=== PATIENT | male | born 1990 | race Caucasian/White ===

== ENCOUNTER 2022-03-18 09:15 | Inpatient (IN) | payer OTHER, MEDICAID, SELFPAY ==
[2022-03-18] VITALS (85 sets, daily range): BP systolic 124–167; BP diastolic 57–103; PULSE 109–134; RESP 17–58; TEMP 36.9–39.6; O2SAT 84–100; BMI 27.1
--- NOTE | ~2022-03-18 | XR_ITS ---
EXAMINATION: XR abdomen NG/feed tube rechec DATE: 03/18/2022 10:45 INDICATION: Nasogastric tube placement. TECHNIQUE: An upright view of the abdomen was obtained. COMPARISON: Abdomen radiograph at 9:53 AM FINDINGS: The lower abdomen is excluded. There are no dilated loops of bowel. The nasogastric tube ti p is in the stomach. IMPRESSION: 1. Nasogastric tube tip in the stomach. Reviewed, dictated and finalized at location A. GER FASHION
--- NOTE | ~2022-03-18 | CT_ITS ---
EXAMINATION: CTA chest PE protocol DATE: 03/18/2022 15:08 INDICATION: respiratory distress, rule out PE TECHNIQUE: Computed tomography angiography (CTA) of the chest was performed with 100 mL Omnipaque-350 intravenous contrast timed to evaluate the pulmonary arteries. Coronal maximum intensity projection 3D-reconstructions were created by the technologist. The dose-length product (DLP) was 952.25 mGy-cm. Automated exposure control and iterative reconstruction technique were employed. COMPARISON: None. FINDINGS: Lung parenchyma and airways: Scattered groundglass and acinar opacities likely involving all lobes. D ependent atelectasis/consolidation in the right middle lobe and bilateral lower lobes. Mucus plugging in the right middle lobe and right lower lobe Pleura: Unremarkable. Thoracic inlet, axillae and chest wall: Unremarkable. Thoracic aorta: Normal. Mediastinum: Normal. Heart and pericardium: Normal. Coronary artery calcifications: Absent. Upper abdomen: No significant finding. NG tube tip terminates in the stomach. Side port at the [facility]. Bones: No acute osseous finding. Mild anterior wedge deformity of a midthoracic vertebral body, presu mably chronic. Pulmonary arteries: Study quality: Motion limited examination, particularly in the lower lobes where subsegmental or nonocclusive segmental emboli could be missed. No pulmonary emboli detected. IMPRESSION: Motion limited examination, particularly in the lower lobes, within that constraint, no definite CT e vidence of acute pulmonary embolus. Pulmonary opacities concerning for pneumonia involving all lobes, with mucus plugging and atelectasis in the right middle lobe and right lower lobe. Reviewed, dictated and finalized at location K. BUMPER MECHANIC IMPRESSION: Motion limited examination, particularly in the lower lobes, within that constr aint, no definite CT evidence of acute pulmonary embolus. Pulmonary opacities c oncerning for pneumonia involving all lobes, with mucus plugging and atelectasi s in the right middle lobe and right lower lobe.
--- NOTE | ~2022-03-18 | CT_ITS ---
EXAMINATION: CT brain wo con DATE: 03/18/2022 11:29 INDICATION: Seizure. TECHNIQUE: Computed tomography (CT) of the head was performed without intravenous contrast. The mA wa s adjusted according to patient size. Iterative reconstruction technique was employed. The dose-lengt h product was 1362.00 mGy-cm. COMPARISON: None FINDINGS: There is no intracranial hemorrhage, acute infarction, or abnormal intracranial mass lesion . The ventricles are normal in size. Partially visualized is multifocal dental disease. The mastoid a ir cells are normal. There is mucosal thickening in the paranasal sinuses with thickening and scleros is of many of the sinus mckeon, consistent with chronic sinusitis. The orbits are normal. IMPRESSION: 1. Normal brain. 2. Chronic sinusitis. 3. Dental disease. Reviewed, dictated and finalized at location A. MACEUTICAL PHYSICIAN
--- NOTE | ~2022-03-18 | XR_ITS ---
Portable chest x-ray Comparison: 03/19/2022 Clinical History: Respiratory failure Findings: Endotracheal tube and NG tube are in satisfactory positions. Minimal right pleural effusio n present. There is right basilar atelectasis or pneumonia. Left lung essentially clear. Cardiomedia stinal silhouette is stable. Bones and soft tissues are unremarkable. Impression: Minimal right pleural effusion with right basilar atelectasis versus pneumonia. Correlate clinically. Reviewed, dictated and finalized at location M. IFIED NURSING ASSISTANT INSTRUCTOR Impression: Minimal right pleural effusion with right basilar atelectasis versus pneumonia. Correlate clinically.
--- NOTE | ~2022-03-18 | US_ITS ---
EXAMINATION: US right upper quadrant DATE: 03/24/2022 18:10 INDICATION: elevated LFT TECHNIQUE: Multiple grayscale and Doppler ultrasound images of the right upper quadrant were obtained . COMPARISON: None available. FINDINGS: Pancreas not visualized. The liver is decreased in size with normal echogenicity and coarse echotexture. No surface nodularity. Normal hepatopetal flow in the main portal vein. Gallbladder wal l thickening to 4 mm, otherwise normal gallbladder findings. The common bile duct measures 2 mm. Ther e was no sonographic Jones sign. IMPRESSION: Possible cirrhotic change of the liver. Gallbladder wall thickening, a nonspecific finding. Reviewed, dictated and finalized at location K. LABORER IMPRESSION: Possible cirrhotic change of the liver. Gallbladder wall thickening, a nonspeci fic finding.
--- NOTE | ~2022-03-18 | XR_ITS ---
Portable chest x-ray Comparison: 03/21/2022 Clinical History: Respiratory failure Findings: Mild bibasilar haziness is improved from prior exam, along with discoid bibasilar atelecta sis. Cardiomediastinal silhouette is stable. Bones and soft tissues are unremarkable. Impression: Probable mild bibasilar pulmonary edema versus infection. Correlate clinically. Discoid bibasilar atelectasis. Reviewed, dictated and finalized at [facility]. LOCATOR Impression: Probable mild bibasilar pulmonary edema versus infection. Correlate clinically. Discoid bibasilar atelectasis.
--- NOTE | ~2022-03-18 | XR_ITS ---
EXAMINATION: XR abdomen NG/feed tube insert DATE: 03/18/2022 10:08 INDICATION: Nasogastric tube placement. TECHNIQUE: A semiupright view of the abdomen was obtained. COMPARISON: Chest single view at 9:51 AM FINDINGS: The lower abdomen is excluded. There is gaseous distention of the stomach. There is no visi ble nasogastric tube in the abdomen. IMPRESSION: 1. Nasogastric tube coiled in the pharynx on the chest radiograph. Reviewed, dictated and finalized at location A. OMER SERVICE LEADER
--- NOTE | ~2022-03-18 | XR_ITS ---
Portable chest x-ray Comparison: 03/20/2022 Clinical History: Respiratory failure Findings: There is patchy bibasilar and perihilar airspace disease. No definite pleural effusions. Cardiomediastinal silhouette is stable. Bones and soft tissues are unremarkable. Impression: Patchy bibasilar and perihilar airspace disease. Correlate for pulmonary edema or infection. Reviewed, dictated and finalized at [facility]. R AND CHASSIS INSPECTOR Impression: Patchy bibasilar and perihilar airspace disease. Correlate for pulmonary edema or infection.
--- NOTE | ~2022-03-18 | XR_ITS ---
Portable chest x-ray Comparison: 03/18/2022 Clinical History: Tube placement Findings: Endotracheal tube and NG tube are in satisfactory positions. There is hazy right basilar a irspace disease. Left lung clear. Cardiomediastinal silhouette is stable. Bones and soft tissues are unremarkable. Impression: Right basilar atelectasis versus pneumonia. Support tubes, as above. Reviewed, dictated and finalized at location . OUNDER STERILE PRODUCTS Impression: Right basilar atelectasis versus pneumonia. Support tubes, as above.
--- NOTE | ~2022-03-18 | XR_ITS ---
EXAMINATION: XR chest ET placement DATE: 03/18/2022 10:08 INDICATION: Intubation. TECHNIQUE: A single frontal view of the chest was obtained. COMPARISON: None. FINDINGS: There are airspace opacities in right lower lung zone. No pleural effusion or pneumothorax. The heart size is normal. The endotracheal tube tip is 3.5 cm above the manpreet. The nasogastric tube is coiled in the pharynx. IMPRESSION: 1. Airspace opacities in right lower lung zone, consistent with atelectasis versus pneumonia. 2. Nasogastric tube coiled in the pharynx. Reviewed, dictated and finalized at location A. CTOR OF SCIENCE IMPRESSION: 1. Airspace opacities in right lower lung zone, consistent with atelectasis bernardino arthur pneumonia. 2. Nasogastric tube coiled in the pharynx.
--- NOTE | 2022-03-18 09:19 | ECG_ITS ---
Measurements Intervals [place] Rate: 111 P: 73 DE: 124 QRS: 66 QRSD: 94 T: 70 QT: 366 QTc: 498 Interpretive Statements SINUS TACHYCARDIA LEFT ATRIAL ENLARGEMENT BORDERLINE ST-T WAVE ABNORMALITY- DIFFUSE LEADS BASELINE ARTIFACT- I, II, III, AVR, AVL, AVF, V1-V5 ABNORMAL ECG NO PREVIOUS ECG AVAILABLE FOR COMPARISON Electronically Signed On 03-18-2022 11:24:52 WEB PAGE DEVELOPER by Sandip Lerner D.O.
[2022-03-18] MEDS: FUROSEMIDE INJ 40 MG/4 ML VIAL IV PUSH (10:19)
[2022-03-18 10:32] LABS: Alveolar/Arterial O2 Gradient 436.3 mmHg; Base Excess ABG 4.8 mEq/l (+/-2.0); Carboxyhemoglobin 0.9 % THb (0-2.0); Fractional Inspired Oxygen 80 %; HCO3 ABG 29.3 mEq/l (22.0-26.0); Methemoglobin ABG 0.4 %THb (0-1.5); Oxygen Content ABG 21.3 %vol (16.0-22.0); Oxygen Saturation ABG 97.1 % (95.0-100.0); Oxyhemoglobin 95.1 % THb (90.0-100.0); PCO2 ABG 42.8 mmHg (35.0-45.0); PO2 ABG 89.2 mmHg (80.0-100.0); PO2 FiO2 Ratio Arterial Blood 1.12 %; Reduced Hemoglobin 3.6 %THb (0-5.0); Total Hemoglobin 15.9 g/dL (12.0-18.0); pH ABG 7.454 (7.350-7.450)
[2022-03-18 10:34] LABS: Arterial Blood Gas Ventilator rate 18 /MIN; Device VENTILATOR; Modified Allen's Test Pass; Site Drawn LEFT RADIAL
[2022-03-18 10:35] LABS: Arterial Blood Gas PEEP 8 cmH2O; Arterial Blood Gas Tidal Volume 500 ml; Arterial Blood Gas Vent Mode CMV
[2022-03-18] MEDS: FENTANYL 2,500MCG/NS250ML(*CRX 2,500 MCG/250 ML BAG IV CONT (10:35)
[2022-03-18] MEDS: MIDAZOLAM 100MG/NS 100ML(*CRX) 100 MG/100 ML BAG IV CONT (10:37)
[2022-03-18] MEDS: SODIUM CHLORIDE 0.9% IV 1,000 ML 999 ML IV CONT ×2 (11:00)
[2022-03-18 11:07] LABS: Hematocrit 46.4 % (42.0-52.0); Hemoglobin 15.2 g/dL (14.0-18.0); Mean Corpuscular HGB Conc 32.8 g/dl (32-36); Mean Corpuscular Hemoglobin 27.2 pg (26-34); Mean Corpuscular Volume 83.2 fl (80-100); Mean Platelet Volume 10.9 fl (7.4-10.4); Platelet Count Result 414 k/mm3 (150-375); Red Blood Count 5.58 M/mm3 (4.6-6.20); Red Cell Distribution Width 14.7 % (11.5-14.5); White Blood Count 27.9 K/mm3 (4.5-10.0)
[2022-03-18 11:15] LABS: Lactic Acid Reflex 2.1 mmol/L (0.7-2.0)
[2022-03-18 11:17] LABS: INR 1.2; Prothrombin Time 14.7 Seconds (11.1-14.7)
[2022-03-18 11:18] LABS: Partial Thromboplastin Time 22.5 SECONDS (22.3-36.8)
[2022-03-18 11:22] LABS: Amphetamine Screen Urine Negative (Negative); Barbiturate Screen Urine Negative (Negative); Benzodiazepines Screen Urine Positive (Negative); Cannabinoid Screen Urine Negative (Negative); Cocaine Screen Urine Negative (Negative); Methadone Screen Urine Negative (Negative); Opiate Screen Urine Negative (Negative); Phencyclidine Screen Urine Negative (Negative)
[2022-03-18 11:35] LABS: Band Neutrophils Percent 7 % (0-6); Lymphocytes Absolute Manual 1.67 K/mm3 (1.1-4.5); Monocytes Absolute Manual 2.79 K/mm3 (0.1-0.90); Monocytes Percent Manual 10 % (3-9); Neutrophils Absolute Manual 23.43 K/mm3 (1.3-6.7); Neutrophils Percent Manual 77 % (46-73); Platelet Estimate Increased (Adequate); Schistocytes None Seen (NORMAL); Total Cells Counted 100
--- NOTE | 2022-03-18 11:37 | PC.NURSE ---
Med dose increased due to Pt agitation, EDP made aware.
[2022-03-18 11:41] LABS: Influenza A QL RT-PCR Negative (Negative); Influenza B QL RT-PCR Negative (Negative); SARS-CoV-2 RNA PCR Negative
--- NOTE | 2022-03-18 12:35 | PC.NURSE ---
Pt continues to be SOB, O2 83% on 10L/ O2 with non-rebreathe mask. Dr Doll and respiratory at bedside 09:36 100mg of Ketamine, 100mg of Propofol and 20mg of Etomidate administered. 09:43 50mg of Rocuronium given 09:[address] Doll, 24 at the teeth, 25 at the lip
--- NOTE | 2022-03-18 13:00 | PM.IMHP ---
H&P: HPI History of Present Illness Date/Time: 03/18/22 13:00 Chief Complaint: Shortness of breath. Narrative: This is a 31-year-old male who presented to the emergency department via EMS from [facility] for evaluation of shortness of breath. He was alert and talking on arrival though was intubated shortly thereafter with hypoxia and respiratory distress. Medical personnel have been instructed by officers at the patient's bedside that we are forbidden from calling the patient's family members to obtain a medical history. As such, all of the following history is obtained via a review of his electronic medical records which is sparse. According to the officers, the patient has been in their custody for approximately 1 week and they indicate that he has been withdrawing from fentanyl though no specific symptoms were given. Patient told the ED staff that he has had symptoms of an upper respiratory infection for the past week and he had apparently been feeling increasingly short of breath since the weekend. Prior to arrival he was reportedly given a nebulizer treatment and EMS was summoned due to an SpO2 of 80% on room air. He arrived to the ED alert and oriented x4 with an SpO2 of 83% on CPAP. It sounds as though he was in respiratory extremis and he was transitioned to BiPAP to prepare for intubation. During intubation he was noted to have copious amounts of gastric contents in the oropharynx and it is assumed that he likely aspirated prior to intubation. He was afebrile on arrival but temperature did spike to 103.2? once in ICU. Blood pressures have been stable and he has been persistently tachycardic. Labs were significant for leukocytosis with left shift, sodium 146, potassium 3.1, BUN 36, creatinine 1.50, lactic acid 2.1, proBNP 342, troponin 0.145. Drug screen was positive for benzodiazepines. He was negative for influenza and COVID. CT of the chest was limited due to motion though he appears to have pneumonia involving all lobes with mucous plugging in the right middle and lower lobes. Brain CT was ordered due to concerns for possible brief convulsions in the ED and that showed a normal brain with chronic sinusitis and dental disease. At the time my evaluation he is heavily sedated and is requiring quite a bit of fentanyl and Versed to keep him that way. Review of Systems Review of Systems: Unable to obtain given clinical condition as detailed above. [facility] Past Medical History Medical History Medical history unknown Surgical History Surgical History Surgical history unknown Family History Family History (Updated 03/18/22 @ 20:45 by Spring Clement PA-C) Other Family history unknown Social History Social History (Updated 03/18/22 @ 20:46 by Spring Clement PA-C) Social History: Social history unknown. Reported fentanyl use though cannot confirm. Meds Home Medications and Allergies Allergies Allergy/AdvReac Type Severity Reaction Status Date / Time Penicillins Allergy Unknown Verified 03/18/22 13:38 Vital Signs Vital Signs - 24 hr 03/18/22 09:16 03/18/22 10:04 03/18/22 10:05 Temperature 98.5 F Pulse Rate 132 H 123 H 124 H Respiratory Rate 58 H 18 Blood Pressure 135/97 H 136/98 H Pulse Oximetry 84 L 97 Oxygen Delivery Non-Rebreather Mask Oxygen Flow Rate 10 Fraction of Inspired Oxygen 03/18/22 10:05 03/18/22 10:35 03/18/22 10:37 Temperature Pulse Rate 117 H 120 H Respiratory Rate 20 20 Blood Pressure Pulse Oximetry 97 Oxygen Delivery CPAP Oxygen Flow Rate Fraction of Inspired Oxygen 03/18/22 11:34 03/18/22 11:35 03/18/22 11:00 Temperature Pulse Rate 109 H 110 H 111 H Respiratory Rate 28 H 29 H 25 H Blood Pressure 135/88 Pulse Oximetry 99 Oxygen Delivery Oxygen Flow Rate Fraction of Inspired Oxygen 03/18/22 12:2
[2022-03-18 13:11] LABS: Alanine Aminotransferase 37 U/L (6-50); Albumin Level 5.1 g/dL (3.5-5.1); Alkaline Phosphatase 89 U/L (38-126); Anion Gap 18 mmol/L (8-16); Aspartate Amino Transferase 31 U/L (17-59); Bilirubin,Total 0.9 mg/dL (0.2-1.3); Blood Urea Nitrogen 36 mg/dL (9-20); Calcium 9.6 mg/dL (8.4-10.2); Carbon Dioxide 29 mmol/L (22-30); Chloride 99 mmol/L (98-107); Estimated CRCL calculation 70 ml/min; Estimated Glomerular Filt Rate 54; Glucose 128 mg/dL (65-110); Magnesium 2.2 mg/dL (1.6-2.3); Potassium 3.1 mmol/L (3.4-5.0); Sodium 146 mmol/L (137-145)
--- NOTE | 2022-03-18 13:19 | ED.SOB ---
HPI - SOB/Dyspnea General Chief Complaint: Shortness of Breath/Dyspnea Stated Complaint: SOB Time Seen by Provider: 03/18/22 09:19 Source: patient, EMS and RN notes reviewed Mode of arrival: EMS Limitations: clinical condition (respiratory distress) History of Present Illness HPI Narrative: THis is a 31 year old male with history of fentanyl use who presents from long-term for evaluation of respiratory distress. Police are with patient and they report he has been in long-term for 1 week and he has been going through fentanyl withdrawals. It is reported he has been dealing with URI symptoms for 1 week and shortness of breath for past couple of days. HE was given neb tx at long-term. He was found to be 81% on 4 L NC on their arrival. They were able to get him to 91 % on CPAP. Patient denies chest pain. He denies nausea and vomiting. HE is unable to talk in complete sentences. HE is currently on CPAP in respiratory distress. He was made aware of pending intubation and he is agreeable. Related Data Allergies Allergy/AdvReac Type Severity Reaction Status Date / Time Penicillins Allergy Unknown Verified 03/18/22 13:38 Review of Systems Review of Systems: ROS unobtainable: Yes unobtainable due to medical condition [facility] Past Medical History Medical History (Updated 03/18/22 @ 19:27 by nAa Doll MD) No active medical problems Surgical History Surgical History (Updated 03/18/22 @ 19:12 by Ana Doll MD) Surgical history unknown Social History Social History (Updated 03/18/22 @ 19:13 by Ana Doll MD) Smoking status: Unknown if ever smoked Substance use: current Substance use type: opiates Exam Const: General: alert and ill appearing Limitations: other limitations Other: in respiratory distress HENMT: Head: normal to inspection Face and sinus: normal facial exam Mouth: Yes Normal oral and palatal mucosa present and Yes lip normal Throat: uvula midline Eyes: Pupils: Equal, round and reactive pupils present EOM: EOMs intact bilaterally Neck: Neck: normal visual inspection Chest: Chest palpation & inspection: normal inspection of the chest Resp: Effort & Inspection: retractions, tachypneic and uses accessory muscles Auscultation: rhonchi throughout Cardio: Rate: tachycardic Rhythm: regular rhythm Heart sounds: no murmurs GI: GI Palp: Yes Soft to palpation, No Tenderness to palpation present (GI), No Guarding due to palpation present (GI) and No Rigid due to palpation Auscultation: normal bowel sounds Back/Spine/Pelvis: Back: no CVA tenderness Skin: General skin exam: normal color Rashes: no rashes Wounds: no wounds Neuro: Other: unable to assess Extrem: General: no pedal edema Psych: Mental Status: mental status grossly normal Course Vital Signs Vital signs: Vital Signs Temperature 98.5 F 03/18/22 09:16 Pulse Rate 132 H 03/18/22 09:16 Respiratory Rate 58 H 03/18/22 09:16 Blood Pressure 135/97 H 03/18/22 09:16 Pulse Oximetry 84 L 03/18/22 09:16 Oxygen Delivery Non-Rebreather Mask 03/18/22 09:16 Oxygen Flow Rate 10 03/18/22 09:16 Temperature 102.4 F H 03/18/22 18:20 Pulse Rate 130 H 03/18/22 18:16 Respiratory Rate 18 03/18/22 18:16 Blood Pressure 147/88 H 03/18/22 18:16 Pulse Oximetry 97 03/18/22 18:16 Oxygen Delivery Mechanical Ventilation 03/18/22 17:46 Oxygen Flow Rate 10 03/18/22 09:16 Fraction of Inspired Oxygen 55 03/18/22 17:46 Procedures Intubation Intubation #1: Intubation Date: 03/18/22 Intubation Time: 09:45 sedative: Etomidate (pro) Mg Given: 100 paralytic: Rocuronium Mg Given: 50 Laryngoscope: fiber optic video scope Tube Size (cm): 7.5 Method of Intubation: orotracheal Number of Attempts: 2 Tube Secured Depth (cm): 27 Tube Placement Confirmation: visualized tube passing through cords, equal breath sounds bilaterally, no breath so
[2022-03-18 13:31] LABS: NT Pro B Type Natriuretic Pept 342 pg/mL (5-100); Troponin I 0.145 ng/mL (0.000-0.034)
[2022-03-18 14:02] LABS: Reflex Lactic Acid Yes or No Add Lactic
[2022-03-18] MEDS: SODIUM CHLORIDE 0.9% IV 1,000 ML 125 ML IV CONT (14:17)
--- NOTE | 2022-03-18 14:30 | PC.NURSE ---
Owens cath 16F inserted, yellow clear urine draining.
--- NOTE | 2022-03-18 15:40 | ADMIMU ---
This patient, Frankie Painter, was admitted to IMU status, and placed in Intensive Care Unit-5. Patient/family oriented to hospital policies and general routines including ID bracelet, bed and alarms, visiting hours, pain management, procedures, bathroom and other care routines, personal items, smoking policy, room service/diet, and visiting hours. Valuables list has been completed. Information on how to activate the Rapid Response Team has been discussed. Patient/Family are encouraged to report perceived risks to care and to ask questions if they do not understand what they are told or what they should do.
[2022-03-18 15:51] LABS: Lactic Acid 1.8 mmol/L (0.7-2.0)
[2022-03-18] MEDS: PROPOFOL IV EMULSION 100 ML 5.45 MG IV CONT ×2 (17:13→21:04)
[2022-03-18 18:05] LABS: Triglycerides 117 mg/dL (<150)
[2022-03-18 19:08] LABS: Glucose Point of Care 116 mg/dl (65-105)
[2022-03-18] MEDS: MINERAL OIL/WHITE PETROLATUM OINTMENT 1 APPLIC EACH EYE (20:12)
[2022-03-18] MEDS: DORNASE ALFA INH SOLN 1 MG/ML 2.5 ML AMP 2.5 MG INHALATION (21:26)
[2022-03-18 21:29] LABS: Anion Gap 9 mmol/L (8-16); Blood Urea Nitrogen 26 mg/dL (9-20); Calcium 8.5 mg/dL (8.4-10.2); Carbon Dioxide 32 mmol/L (22-30); Chloride 100 mmol/L (98-107); Creatine Kinase 142 U/L (55-170); Estimated CRCL calculation 94 ml/min; Estimated Glomerular Filt Rate > 60; Glucose 133 mg/dL (65-110); Magnesium 2.1 mg/dL (1.6-2.3); Potassium 2.7 mmol/L (3.4-5.0); Sodium 141 mmol/L (137-145)
[2022-03-18 21:40] LABS: Troponin I 0.072 ng/mL (0.000-0.034)
[2022-03-18] MEDS: POTASSIUM CHLORIDE INJ 40 MEQ in SODIUM CHLORIDE 0.9% IV 500 ML 130 MEQ IVPB (22:10)
[2022-03-18] MEDS: POTASSIUM CHLORIDE 20 MEQ PACKET (FOR LIQUID) 40 MEQ PO (22:10)
[2022-03-18 23:25] LABS: Glucose Point of Care 162 mg/dl (65-105)
[2022-03-18] MEDS: FENTANYL 2,500MCG/NS250ML(*CRX 2,500 MCG/250 ML BAG 20 MCG IV CONT (23:33)
[2022-03-19] VITALS (90 sets, daily range): BP systolic 106–145; BP diastolic 63–82; PULSE 77–126; RESP 16–28; TEMP 37.3–38.7; O2SAT 89–100; BMI 27.5
[2022-03-19] MEDS: PROPOFOL IV EMULSION 100 ML 21.82 MG IV CONT ×2 (01:46→10:37)
[2022-03-19 04:38] LABS: Basophils Absolute Auto 0.1 K/mm3 (0.0-0.1); Basophils Percent Auto 0.3 % (0.2-1.2); Eosinophils Absolute Auto 0.1 K/mm3 (0-0.3); Eosinophils Percent Auto 0.3 % (0-4.4); Hematocrit 41.8 % (42.0-52.0); Hemoglobin 13.6 g/dL (14.0-18.0); Immature Granulocyte Absolute 0.11 K/mm3 (0.00-0.031); Immature Granulocyte Percent A 0.5 % (0-0.5); Lymphocytes Absolute Auto 2.95 K/mm3 (0.9-3.2); Lymphocytes Percent Auto 12.3 % (18.3-44.2); Mean Corpuscular HGB Conc 32.5 g/dl (32-36); Mean Corpuscular Hemoglobin 27.6 pg (26-34); Mean Corpuscular Volume 84.8 fl (80-100); Monocytes Absolute Auto 2.3 K/mm3 (0.1-0.6); Monocytes Percent Auto 9.8 % (2.6-8.5); Neutrophils Absolute Auto 18.4 K/mm3 (1.3-6.7); Neutrophils Percent Auto 76.8 % (45.5-73.1); Platelet Count Result 248 k/mm3 (150-375); Red Blood Count 4.93 M/mm3 (4.6-6.20); Red Cell Distribution Width 14.6 % (11.5-14.5); White Blood Count 23.9 K/mm3 (4.5-10.0)
[2022-03-19 04:48] LABS: Alanine Aminotransferase 27 U/L (6-50); Albumin Level 3.9 g/dL (3.5-5.1); Alkaline Phosphatase 70 U/L (38-126); Anion Gap 8 mmol/L (8-16); Aspartate Amino Transferase 25 U/L (17-59); Bilirubin,Total 0.7 mg/dL (0.2-1.3); Blood Urea Nitrogen 19 mg/dL (9-20); Calcium 8.2 mg/dL (8.4-10.2); Carbon Dioxide 28 mmol/L (22-30); Chloride 102 mmol/L (98-107); Estimated CRCL calculation 114 ml/min; Estimated Glomerular Filt Rate > 60; Glucose 104 mg/dL (65-110); Magnesium 2.6 mg/dL (1.6-2.3); Potassium 3.2 mmol/L (3.4-5.0); Sodium 138 mmol/L (137-145)
[2022-03-19 04:59] LABS: Troponin I 0.022 ng/mL (0.000-0.034)
[2022-03-19 06:19] LABS: Alveolar/Arterial O2 Gradient 239.6 mmHg; Base Excess ABG 6.8 mEq/l (+/-2.0); Carboxyhemoglobin 0.3 % THb (0-2.0); Fractional Inspired Oxygen 50 %; HCO3 ABG 30.5 mEq/l (22.0-26.0); Methemoglobin ABG 0.2 %THb (0-1.5); Oxygen Content ABG 17.9 %vol (16.0-22.0); Oxygen Saturation ABG 95.7 % (95.0-100.0); Oxyhemoglobin 93.4 % THb (90.0-100.0); PCO2 ABG 39.8 mmHg (35.0-45.0); PO2 ABG 72.1 mmHg (80.0-100.0); PO2 FiO2 Ratio Arterial Blood 1.44 %; Reduced Hemoglobin 6.1 %THb (0-5.0); Total Hemoglobin 13.6 g/dL (12.0-18.0)
[2022-03-19 06:22] LABS: Device VENTILATOR; Modified Allen's Test Pass; Site Drawn RIGHT RADIAL; pH ABG 7.502 (7.350-7.450)
[2022-03-19 06:23] LABS: Arterial Blood Gas PEEP 8 cmH2O; Arterial Blood Gas Tidal Volume 500 ml; Arterial Blood Gas Vent Mode CMV; Arterial Blood Gas Ventilator rate 18 /MIN
[2022-03-19] MEDS: MIDAZOLAM 100MG/NS 100ML(*CRX) 100 MG/100 ML BAG 6 MG IV CONT ×2 (06:46→21:17)
[2022-03-19] MEDS: POTASSIUM CHLORIDE 20 MEQ PACKET (FOR LIQUID) 40 MEQ FEED TUBE (07:52)
[2022-03-19] MEDS: MINERAL OIL/WHITE PETROLATUM OINTMENT 1 APPLIC EACH EYE ×2 (08:05→20:10)
[2022-03-19] MEDS: ENOXAPARIN 40 MG/0.4 ML SYRINGE SUB-Q (08:24)
[2022-03-19] MEDS: IPRATROPIUM BR 0.02% INH SOLN 0.5 MG/2.5 ML VIAL INHALATION ×3 (08:44→20:03)
[2022-03-19] MEDS: DORNASE ALFA INH SOLN 1 MG/ML 2.5 ML AMP 2.5 MG INHALATION (08:45)
[2022-03-19] MEDS: PERFLUTREN LIPID MICROSPHERES 1.5 ML VIAL DILUTED TO 10 ML TOTAL VOLUME IV PUSH (10:14)
--- NOTE | 2022-03-19 10:14 | IVDEFINITY ---
Prior to administration of IV Definity the patient was educated on the risks and benefits of the imaging enhancing agent including potential adverse side effects. The patient verbalized understanding. Allergies were verified. No exclusion criteria were identified and at least one of the following inclusion criteria were met: 1) physician request, 2) patient technically difficult to image (per the [place] [employer]chocardi[employer] guidelines of two or more segments not discernable within the apical view), or 3) questionable left ventricular function. ?
[2022-03-19] MEDS: PANTOPRAZOLE SODIUM IV 40 MG VIAL IV PUSH ×2 (10:36→20:11)
[2022-03-19 11:47] LABS: Glucose Point of Care 112 mg/dl (65-105)
--- NOTE | 2022-03-19 12:17 | WPDCNINT ---
Assessment and Plan Assessment and plan (1) Acute respiratory failure with hypoxia: Code(s): J96.01 - Acute respiratory failure with hypoxia Status: Acute Assessment and Plan: Patient with acute respiratory failure likely related to pneumonia/aspiration pneumonitis -intubated in the ER on 03/18/2022 after failing BiPAP, he was in respiratory distress in impending respiratory failure -currently on CMV mode of ventilation, peep of 8, 50% FiO2. Wean FiO2 to maintain O2 sats> 92% -patient has increased secretions, continue Pulmozyme -will add bronchodilators -continue azithromycin cefepime and vancomycin (03/18/2022) -sedated with fentanyl, Versed and propofol (2) Aspiration pneumonia: Code(s): J69.0 - Pneumonitis due to inhalation of food and vomit Status: Acute Assessment and Plan: According the records patient did have aspiration of gastric contents into oropharynx during intubation. -continue antibiotics as above (3) Sepsis: Code(s): A41.9 - Sepsis, unspecified organism Status: Acute Assessment and Plan: Patient presented with shortness of breath, lactic acidosis, acute kidney injury -sepsis likely secondary to pneumonia -received adequate amount of IV fluids -continue maintenance IV fluids -continue antibiotics as above -blood and sputum cultures have been obtained and pending -hemodynamically stable at this time (4) Acute kidney injury: Code(s): N17.9 - Acute kidney failure, unspecified Status: Acute Assessment and Plan: Acute kidney injury likely related to infection, decreased p.o. intake, severe sepsis -initial creatinine was 1.5 on admission, patient received adequate amount of IV fluids -continue maintenance IV fluids -urine output has been adequate -will continue to monitor renal function, electrolytes and urine output (5) Elevated troponin: Code(s): R77.8 - Other specified abnormalities of plasma proteins Status: Acute Assessment and Plan: Elevated troponin likely secondary to sepsis/type 2 infarct -repeat troponins have normalized -EKG did not show any ST-T change (6) Electrolyte abnormality: Code(s): E87.8 - Other disorders of electrolyte and fluid balance, not elsewhere classified Status: Acute Assessment and Plan: Hypokalemia: Potassium being replaced Plan DVT prophylaxis: Lovenox Stress ulcer prophylaxis: Protonix Nutrition: Will start tube feeds Code Status: Full code Critical Care Time Spent: 47 minute Due to a high probability of clinically significant, life threatening deterioration, the patient required my highest level of preparedness to intervene emergently and I personally spent this critical care time directly and personally managing the patient. This critical care time included obtaining a history; examining the patient; pulse oximetry; ordering and review of studies; arranging urgent treatment with development of a management plan; evaluation of patient's response to treatment; frequent reassessment; and discussions with other providers. It was exclusive of separately billable procedures and treating other patients and teaching time. Please see Assessment and Plan section and the rest of the note for further information on patient assessment and treatment This dictation may have been done utilizing a voice recognition system. Attempts have been made to correct errors. However, there may be uncorrected grammatical, spelling, and recognitions errors present. Forest Pathology Associate Professor Consult Note Consult date: 03/19/22 Reason for consult: Acute respiratory failure, pneumonia HPI: Frankie Painter is a 31 year old male with history of fentanyl abuse presented to the ED from senior living valuation of respiratory distress. According the records patient has been in senior living for about 1 week and has been going through fentanyl withdrawals and dealing with upper respiratory tract infection for 1 week along with shortness
[2022-03-19] MEDS: FENTANYL 2,500MCG/NS250ML(*CRX 2,500 MCG/250 ML BAG 20 MCG IV CONT (12:20)
[2022-03-19] MEDS: LEVALBUTEROL NEB 1.25 MG/3 ML 0.63 MG INHALATION ×2 (14:20→20:03)
[2022-03-19] MEDS: PROPOFOL IV EMULSION 100 ML 22.1 MG IV CONT ×2 (15:36→19:42)
[2022-03-19 18:14] LABS: Glucose Point of Care 94 mg/dl (65-105)
--- NOTE | 2022-03-19 20:59 | ECHO_ITS ---
Patient Info Name: Frankie Painter Age: 31 years : 1990 Gender: Male Ht: 72 in Wt: 200 lbs BSA: 2.16 m2 HR: 110 bpm BP: 110 / 74 mmHg Heart Rhythm: Sinus Rhythm, Tachycardia Technical Quality: Fair Exam Date: 03/19/2022 9:29 AM Exam Location: [facility] Pulmonary Patient Status: Inpatient Admit Date: 03/18/2022 Staff Ordering Physician: Spring Clement PA-C Systems Development Manager: Yenny Calhoun RDCS Attending Provider: Allan Amador MD Referring Physician: Racquel LEE; Exam Type: CA echo dop bubble study w con Study Info Indications - ELEVATED TROPONIN, HYPOXIA, EKG CHANGES Complete two-dimentional, color flow and Doppler transthoracic echocardiogram is performed with agitated saline and with contrast to opacify the left ventricle and to improve the delineation of the left ventricle endocardial borders. Contrast/Agitated Saline Contrast/Ag. Saline: Definity Amount: 2.00 ml Administered By: Yenny Calhoun RDCS Existing IV Access: Yes IV Access Condition: patent with no signs of infiltration Contrast/Ag. Saline: Agitated Saline Amount: 20.00 ml Existing IV Access: Yes IV Access Condition: patent with no signs of infiltration Summary 1. Technically difficult study with limited views. 2. Left ventricular systolic function is normal, estimated at 60-65%. 3. The left ventricular diastolic function is grade I diastolic dysfunction. 4. There is trace tricuspid valve regurgitation. Left Ventricle Left ventricular chamber dimension is normal. Left ventricular systolic function is normal, estimated at 60-65%. The left ventricular diastolic function is grade I diastolic dysfunction. Right Ventricle Right ventricular chamber dimension is not well visualized. Left Atria Left atrial chamber dimension is normal. Right Atria Right atrial chamber dimension is normal. Atrial Septum Intact interatrial septum visualized by color flow imaging. Aortic Valve The aortic valve is not well visualized. There is no aortic valve stenosis. There is no aortic valve regurgitation. Pulmonic Valve The pulmonic valve is not well visualized. Mitral Valve There is no mitral valve regurgitation. Tricuspid Valve There is trace tricuspid valve regurgitation. Pericardium/Pleural There is small pericardial effusion. Aorta The aortic root size at the sinus of Valsalva is not well visualized. Left Ventricular Outflow Tract Name Value Normal LVOT Doppler LVOT Peak Gradient 4 mmHg LVOT Mean Gradient 2 mmHg LVOT VTI 12 cm LVOT VTI/AV VTI Ratio 0.8 Pulmonic Valve Name Value Normal RVOT Doppler RVOT Peak Gradient 2 mmHg PV Doppler PV Peak Gradi
[2022-03-20] VITALS (71 sets, daily range): BP systolic 87–121; BP diastolic 53–92; PULSE 54–100; RESP 14–33; TEMP 36.8–37.7; O2SAT 93–100
[2022-03-20] LABS: Glucose Point of Care 106 mg/dl (65-105)
[2022-03-20] MEDS: PROPOFOL IV EMULSION 100 ML 22.1 MG IV CONT ×3 (00:05→09:24)
[2022-03-20] MEDS: SODIUM CHLORIDE 0.9% IV 1,000 ML 125 ML IV CONT ×2 (01:06→18:13)
[2022-03-20] MEDS: FENTANYL 2,500MCG/NS250ML(*CRX 2,500 MCG/250 ML BAG 20 MCG IV CONT (01:44)
[2022-03-20] MEDS: IPRATROPIUM BR 0.02% INH SOLN 0.5 MG/2.5 ML VIAL INHALATION ×4 (02:18→20:08)
[2022-03-20] MEDS: LEVALBUTEROL NEB 1.25 MG/3 ML 0.63 MG INHALATION ×4 (02:18→20:08)
[2022-03-20 05:11] LABS: Alveolar/Arterial O2 Gradient 81.8 mmHg; Base Excess ABG 5.5 mEq/l (+/-2.0); Carboxyhemoglobin 0.3 % THb (0-2.0); Fractional Inspired Oxygen 30 %; HCO3 ABG 29.7 mEq/l (22.0-26.0); Methemoglobin ABG 0.2 %THb (0-1.5); Oxygen Content ABG 16.2 %vol (16.0-22.0); Oxygen Saturation ABG 96.7 % (95.0-100.0); Oxyhemoglobin 95.5 % THb (90.0-100.0); PCO2 ABG 42.1 mmHg (35.0-45.0); PO2 ABG 82.6 mmHg (80.0-100.0); PO2 FiO2 Ratio Arterial Blood 2.75 %; pH ABG 7.467 (7.350-7.450)
[2022-03-20 05:12] LABS: Modified Allen's Test Pass; Site Drawn RIGHT RADIAL
[2022-03-20 05:13] LABS: Arterial Blood Gas PEEP 8 cmH2O; Arterial Blood Gas Tidal Volume 500 ml; Arterial Blood Gas Vent Mode CMV; Arterial Blood Gas Ventilator rate 16 /MIN; Device VENTILATOR
[2022-03-20 06:53] LABS: Basophils Percent Auto 0.1 % (0.2-1.2); Eosinophils Absolute Auto 0.3 K/mm3 (0-0.3); Eosinophils Percent Auto 1.8 % (0-4.4); Hematocrit 33.1 % (42.0-52.0); Hemoglobin 10.6 g/dL (14.0-18.0); Immature Granulocyte Absolute 0.05 K/mm3 (0.00-0.031); Immature Granulocyte Percent A 0.3 % (0-0.5); Lymphocytes Percent Auto 17.2 % (18.3-44.2); Mean Corpuscular Hemoglobin 27.4 pg (26-34); Mean Corpuscular Volume 85.5 fl (80-100); Mean Platelet Volume 11.1 fl (7.4-10.4); Monocytes Percent Auto 6.4 % (2.6-8.5); Neutrophils Absolute Auto 11.2 K/mm3 (1.3-6.7); Neutrophils Percent Auto 74.2 % (45.5-73.1); Platelet Count Result 186 k/mm3 (150-375); Red Blood Count 3.87 M/mm3 (4.6-6.20); Red Cell Distribution Width 14.6 % (11.5-14.5); White Blood Count 15.1 K/mm3 (4.5-10.0)
[2022-03-20 07:02] LABS: Vancomycin Trough 10.7 ug/mL (10.0-20.0)
[2022-03-20 07:15] LABS: Alanine Aminotransferase 21 U/L (6-50); Albumin Level 2.8 g/dL (3.5-5.1); Alkaline Phosphatase 53 U/L (38-126); Anion Gap 5 mmol/L (8-16); Aspartate Amino Transferase 18 U/L (17-59); Bilirubin,Total 0.4 mg/dL (0.2-1.3); Blood Urea Nitrogen 12 mg/dL (9-20); Calcium 7.7 mg/dL (8.4-10.2); Carbon Dioxide 27 mmol/L (22-30); Chloride 104 mmol/L (98-107); Estimated CRCL calculation 194 ml/min; Estimated Glomerular Filt Rate > 60; Glucose 103 mg/dL (65-110); Phosphorus 2.5 mg/dL (2.5-4.5); Potassium 2.8 mmol/L (3.4-5.0); Sodium 136 mmol/L (137-145)
[2022-03-20] MEDS: DORNASE ALFA INH SOLN 1 MG/ML 2.5 ML AMP 2.5 MG INHALATION (08:37)
[2022-03-20] MEDS: ENOXAPARIN 40 MG/0.4 ML SYRINGE SUB-Q (09:25)
[2022-03-20] MEDS: PANTOPRAZOLE SODIUM IV 40 MG VIAL IV PUSH ×2 (09:26→20:19)
[2022-03-20] MEDS: MINERAL OIL/WHITE PETROLATUM OINTMENT 1 APPLIC EACH EYE (09:26)
[2022-03-20] MEDS: POTASSIUM CHLORIDE 20 MEQ PACKET (FOR LIQUID) 40 MEQ FEED TUBE ×2 (09:38→17:01)
[2022-03-20] MEDS: dexmedeTOMIDine 400 MCG/100 ML 400 MCG/100 ML BAG IV CONT (09:39)
[2022-03-20] MEDS: POTASSIUM CHLORIDE INJ 40 MEQ in SODIUM CHLORIDE 0.9% IV 500 ML 130 MEQ IVPB (09:44)
--- NOTE | 2022-03-20 10:03 | PC.NURSE ---
1/2- Patient arrived intubated and sedated to ICU room 5 with 2 [facility] guards. Unable to obtain patients full medical records since staff were not allowed to contact patients family members due to patient being incarcerated, female guard stated paperwork sent with patient was his info and she knew about a hypertension history , recent fentanyl withdrawl, and a suicide watch.
--- NOTE | 2022-03-20 10:25 | PCFNICU ---
ICU Rounding Note: Pt current nutrition is Vital AF 1.2 at 60 ml/hr. Last recorded weight is 91.9 kg. Bowel Motility: smear reported 1/ Labs Reviewed:Cr 0.5,Na 136, Alb 2.8,Hgb 10.6,Hct 33.1 Meds Noted:Precedex,Fentanyl, Lovenox, Vancomycin, Atrovent. Skin: WNL Additional Notes: Patient remains on mechanical vent. Nursing reports tube feedings currently on hold for breathing trail. Possible extubated today. If patient remains on tube feedings recommend to continue with Vital AF 1.2. Following daily in ICU rounds. Will monitor in ICU rounds and reassess every Friday and Friday.
[2022-03-20 11:00] LABS: Alveolar/Arterial O2 Gradient 99.7 mmHg; Base Excess ABG 2.4 mEq/l (+/-2.0); Fractional Inspired Oxygen 30 %; HCO3 ABG 25.4 mEq/l (22.0-26.0); Oxygen Content ABG 15.6 %vol (16.0-22.0); Oxyhemoglobin 94.4 % THb (90.0-100.0); PO2 ABG 74.3 mmHg (80.0-100.0); PO2 FiO2 Ratio Arterial Blood 2.48 %; Total Hemoglobin 11.7 g/dL (12.0-18.0); pH ABG 7.492 (7.350-7.450)
[2022-03-20 11:01] LABS: Device VENTILATOR; Modified Allen's Test Pass; Site Drawn RIGHT RADIAL
[2022-03-20 11:02] LABS: Arterial Blood Gas PEEP 8 cmH2O; Arterial Blood Gas Pressure Support 5 cmH2O; Arterial Blood Gas Vent Mode SPONTANEOUS
[2022-03-20 11:40] LABS: Glucose Point of Care 125 mg/dl (65-105)
--- NOTE | 2022-03-20 11:53 | WPDINTPN ---
Progress Note: A&P Assessment and Plan (1) Acute respiratory failure with hypoxia: Code(s): J96.01 - Acute respiratory failure with hypoxia Status: Acute Assessment and Plan: Patient with acute respiratory failure likely related to pneumonia/aspiration pneumonitis -intubated in the ER on 03/18/2022 after failing BiPAP, he was in respiratory distress in impending respiratory failure -currently on CMV mode of ventilation, peep of 8,35% FiO2. -patient was started on Precedex infusion - 5/8 PSV SBT done for more than 1 hour. RSBI, ABGI and Vitals acceptable. Pt awake and following commands. Will extubate and monitor. NPO for now. Bipap PRN. Continue Precedex discontinue all other sedatives -will add bronchodilators -continue azithromycin cefepime. Discontinue vancomycin (03/18/2022) -add Flagyl (2) Aspiration pneumonia: Code(s): J69.0 - Pneumonitis due to inhalation of food and vomit Status: Acute Assessment and Plan: According the records patient did have aspiration of gastric contents into oropharynx during intubation. -continue antibiotics as above (3) Sepsis: Code(s): A41.9 - Sepsis, unspecified organism Status: Acute Assessment and Plan: Patient presented with shortness of breath, lactic acidosis, acute kidney injury -sepsis likely secondary to pneumonia -received adequate amount of IV fluids -continue maintenance IV fluids -continue antibiotics as above -blood and sputum cultures have been obtained -blood culture 1/2 is growing Staph haemolyticus and bacillus species which suggests contamination -hemodynamically stable at this time (4) Acute kidney injury: Code(s): N17.9 - Acute kidney failure, unspecified Status: Acute Assessment and Plan: Acute kidney injury likely related to infection, decreased p.o. intake, severe sepsis -initial creatinine was 1.5 on admission, patient received adequate amount of IV fluids -continue maintenance IV fluids -urine output has been adequate and renal function has normalized -will continue to monitor renal function, electrolytes and urine output (5) Elevated troponin: Code(s): R77.8 - Other specified abnormalities of plasma proteins Status: Acute Assessment and Plan: Elevated troponin likely secondary to sepsis/type 2 infarct -repeat troponins have normalized -EKG did not show any ST-T change (6) Electrolyte abnormality: Code(s): E87.8 - Other disorders of electrolyte and fluid balance, not elsewhere classified Status: Acute Assessment and Plan: Hypokalemia: Potassium is being replaced Plan DVT prophylaxis: Lovenox Stress ulcer prophylaxis: Protonix Nutrition: Currently on tube feeds Code Status: Full code Critical Care Time Spent: 30 minute Due to a high probability of clinically significant, life threatening deterioration, the patient required my highest level of preparedness to intervene emergently and I personally spent this critical care time directly and personally managing the patient. This critical care time included obtaining a history; examining the patient; pulse oximetry; ordering and review of studies; arranging urgent treatment with development of a management plan; evaluation of patient's response to treatment; frequent reassessment; and discussions with other providers. It was exclusive of separately billable procedures and treating other patients and teaching time. Please see Assessment and Plan section and the rest of the note for further information on patient assessment and treatment This dictation may have been done utilizing a voice recognition system. Attempts have been made to correct errors. However, there may be uncorrected grammatical, spelling, and recognitions errors present. Subjective Date/time seen: 03/20/22 Overnight events reviewed. Afebrile Continues to be on mechanical ventilation 30% FiO2 and 8 of PEEP Continues to be sedated with
[2022-03-20] MEDS: metroNIDAZOLE 500 MG/ISO 100ML 500 MG/100 ML BAG 100 MG IVPB ×3 (14:00→23:09)
--- NOTE | 2022-03-20 17:09 | PC.NURSE ---
03/20/22- Patient extubated and denied any PMH or prescription medications
[2022-03-20 17:26] LABS: Glucose Point of Care 72 mg/dl (65-105)
[2022-03-20] MEDS: dexmedeTOMIDine 400 MCG/100 ML 400 MCG/100 ML BAG 11.49 MCG IV CONT (18:14)
[2022-03-20 23:15] LABS: Glucose Point of Care 98 mg/dl (65-105)
[2022-03-20] MEDS: traZODone HCL 50 MG TABLET PO (23:40)
[2022-03-21] VITALS (20 sets, daily range): BP systolic 100–143; BP diastolic 56–98; PULSE 57–100; RESP 16–39; TEMP 36.8–37.2; O2SAT 90–100
[2022-03-21] MEDS: LEVALBUTEROL NEB 1.25 MG/3 ML 0.63 MG INHALATION ×4 (02:31→19:33)
[2022-03-21] MEDS: ONDANSETRON INJ 4 MG/2 ML VIAL IV PUSH ×3 (03:56→21:11)
[2022-03-21] MEDS: HYDROcodone/acetaminophen (*CRX) 5-325 MG TABLET 1 TAB PO (04:25)
[2022-03-21 04:42] LABS: Basophils Percent Auto 0.1 % (0.2-1.2); Eosinophils Absolute Auto 0.2 K/mm3 (0-0.3); Eosinophils Percent Auto 1.2 % (0-4.4); Hematocrit 32.3 % (42.0-52.0); Hemoglobin 10.6 g/dL (14.0-18.0); Immature Granulocyte Absolute 0.07 K/mm3 (0.00-0.031); Immature Granulocyte Percent A 0.5 % (0-0.5); Lymphocytes Absolute Auto 2.03 K/mm3 (0.9-3.2); Lymphocytes Percent Auto 14.7 % (18.3-44.2); Mean Corpuscular HGB Conc 32.8 g/dl (32-36); Mean Corpuscular Hemoglobin 27.5 pg (26-34); Mean Corpuscular Volume 83.7 fl (80-100); Mean Platelet Volume 11.2 fl (7.4-10.4); Monocytes Absolute Auto 0.8 K/mm3 (0.1-0.6); Neutrophils Absolute Auto 10.7 K/mm3 (1.3-6.7); Neutrophils Percent Auto 77.5 % (45.5-73.1); Platelet Count Result 220 k/mm3 (150-375); Red Blood Count 3.86 M/mm3 (4.6-6.20); Red Cell Distribution Width 14.3 % (11.5-14.5); White Blood Count 13.8 K/mm3 (4.5-10.0)
[2022-03-21 05:00] LABS: Alanine Aminotransferase 25 U/L (6-50); Albumin Level 3.4 g/dL (3.5-5.1); Alkaline Phosphatase 60 U/L (38-126); Anion Gap 6 mmol/L (8-16); Aspartate Amino Transferase 31 U/L (17-59); Bilirubin,Total 0.6 mg/dL (0.2-1.3); Blood Urea Nitrogen 6 mg/dL (9-20); Carbon Dioxide 25 mmol/L (22-30); Chloride 106 mmol/L (98-107); Estimated CRCL calculation 165 ml/min; Estimated Glomerular Filt Rate > 60; Glucose 92 mg/dL (65-110); Potassium 3.5 mmol/L (3.4-5.0); Sodium 137 mmol/L (137-145)
[2022-03-21] MEDS: metroNIDAZOLE 500 MG/ISO 100ML 500 MG/100 ML BAG 100 MG IVPB ×3 (05:41→18:06)
[2022-03-21] MEDS: PANTOPRAZOLE SODIUM IV 40 MG VIAL IV PUSH ×2 (07:59→20:40)
[2022-03-21] MEDS: ENOXAPARIN 40 MG/0.4 ML SYRINGE SUB-Q (08:00)
[2022-03-21] MEDS: MORPHINE SULFATE (*CRX) 4 MG/ML INJ IV PUSH ×2 (08:10→20:44)
[2022-03-21] MEDS: POTASSIUM PHOS,M-BASIC-D-BASIC 20 MMOL in SODIUM CHLORIDE 0.9% IV 250 ML 64.17 MMOL IVPB (08:34)
[2022-03-21] MEDS: PROCHLORPERAZINE MALEATE 5 MG TABLET 10 MG PO ×2 (08:38→18:07)
[2022-03-21] MEDS: IPRATROPIUM BR 0.02% INH SOLN 0.5 MG/2.5 ML VIAL INHALATION ×3 (09:23→19:33)
--- NOTE | 2022-03-21 11:01 | PCFNICU ---
ICU Rounding Note: Pt current nutrition is Regular. Last recorded weight is 103.6 kg. Bowel Motility:+BM reported 03/21 Labs Reviewed:Cr 0.6,PO4 2.0, Alb 3.4, Hct 32.3,Hgb 10.6 Meds Noted:Atrovent, Zithromax, Lovenox, Cefepime Skin: WNL Additional Notes: Patient tolerating a regular diet. Agree with diet orders. No further nutritional needs at this time. Following daily in ICU rounds and reassessing with LOS every 7 days.
--- NOTE | 2022-03-21 11:29 | WPDINTPN ---
Progress Note: A&P Assessment and Plan (1) Acute respiratory failure with hypoxia: Code(s): J96.01 - Acute respiratory failure with hypoxia Status: Acute Assessment and Plan: Patient with acute respiratory failure likely related to pneumonia/aspiration pneumonitis -intubated in the ER on 03/18/2022 after failing BiPAP, he was in respiratory distress in impending respiratory failure 1/4 extubated after a successful weaning trial. Now on nasal cannula Incentive spirometry Continue bronchodilators p.r.n. -continue azithromycin cefepime and Flagyl. Discontinued vancomycin (03/18/2022) (2) Aspiration pneumonia: Code(s): J69.0 - Pneumonitis due to inhalation of food and vomit Status: Acute Assessment and Plan: According the records patient did have aspiration of gastric contents into oropharynx during intubation. -continue antibiotics as above (3) Sepsis: Code(s): A41.9 - Sepsis, unspecified organism Status: Acute Assessment and Plan: -sepsis likely secondary to pneumonia -received adequate amount of IV fluids and will discontinue fluids once patient starts eating -continue antibiotics as above -sputum culture is growing yeast which is likely colonization -blood culture 1/2 is growing Staph haemolyticus and bacillus species which suggests contamination -hemodynamically stable at this time (4) Acute kidney injury: Code(s): N17.9 - Acute kidney failure, unspecified Status: Acute Assessment and Plan: Acute kidney injury likely related to infection, decreased p.o. intake, severe sepsis -initial creatinine was 1.5 on admission, patient received adequate amount of IV fluids -creatinine has now normalized -continue maintenance IV fluids -will continue to monitor renal function, electrolytes and urine output (5) Elevated troponin: Code(s): R77.8 - Other specified abnormalities of plasma proteins Status: Acute Assessment and Plan: Elevated troponin likely secondary to sepsis/type 2 infarct -repeat troponins have normalized -EKG did not show any ST-T change (6) Electrolyte abnormality: Code(s): E87.8 - Other disorders of electrolyte and fluid balance, not elsewhere classified Status: Acute Assessment and Plan: Low phosphate and Potassium is being replaced (7) Drug abuse: Code(s): F19.10 - Other psychoactive substance abuse, uncomplicated Status: Acute Assessment and Plan: Patient claims to be withdrawing from fentanyl and Xanax although no objective signs of drug withdrawal. P.r.n. [place] and morphine ordered for pain Monitor for signs of withdrawal Plan DVT prophylaxis: Lovenox Stress ulcer prophylaxis: Protonix Nutrition: Diet ordered Code Status: Full code Incentive spirometry Transfer ICU today Subjective Date/time seen: 03/21/22 Overnight events reviewed. Patient was extubated after a successful weaning trial yesterday. On 2 L nasal cannula. Other vital signs are stable. He is Afebrile He states that he is withdrawing from Xanax and fentanyl complains of nausea and pain all over his body. He states pain is 10/10, sharp and all over her body. He is requesting something for nausea and pain Review of system was also positive for shortness of breath, cough which is dry and anxiety. Denies any other complaints. No diarrhea abdominal pain Other Vitals acceptable Review of Systems Review of Systems: All systems reviewed & are unremarkable except as noted in HPI and below (HPI) Exam Narrative: General: Pt is alert awake and in NAD Lungs/Chest: Trachea central Clear BS B/L, few Crackles at bases Cardiac: RRR. Normal S1 S2. No murmurs Circulation: Pedal pulses are intact and symmetrical. Abdomen: Normal bowel sounds.. Soft. NT. ND. Extremities: No clubbing, cyanosis or edema. Warm : Owens in place Neurologic: Follows commands. Moves all 4 extremities PERRL AO times 3 no tremor Skin
[2022-03-21 11:46] LABS: Glucose Point of Care 103 mg/dl (65-105)
[2022-03-21] MEDS: SODIUM CHLORIDE 0.9% IV 1,000 ML 75 ML IV CONT (12:06)
[2022-03-21 18:18] LABS: Glucose Point of Care 86 mg/dl (65-105)
[2022-03-21] MEDS: PROMETHAZINE HCL 25 MG/ML AMPUL IM (21:56)
[2022-03-22] VITALS (20 sets, daily range): BP systolic 112–140; BP diastolic 67–78; PULSE 51–90; RESP 14–33; TEMP 36.9–37.7; O2SAT 93–99
[2022-03-22] MEDS: metroNIDAZOLE 500 MG/ISO 100ML 500 MG/100 ML BAG 100 MG IVPB ×2 (00:09→05:03)
[2022-03-22 00:15] LABS: Glucose Point of Care 92 mg/dl (65-105)
[2022-03-22] MEDS: LEVALBUTEROL NEB 1.25 MG/3 ML 0.63 MG INHALATION ×4 (02:27→21:32)
[2022-03-22] MEDS: IPRATROPIUM BR 0.02% INH SOLN 0.5 MG/2.5 ML VIAL INHALATION ×4 (02:27→21:31)
[2022-03-22] MEDS: PROMETHAZINE HCL 25 MG/ML AMPUL IM ×3 (03:49→20:16)
[2022-03-22 04:10] LABS: Legionella pneumophila Ag Ur Not Detected (Not Detected)
[2022-03-22 04:22] LABS: Basophils Percent Auto 0.1 % (0.2-1.2); Eosinophils Absolute Auto 0.1 K/mm3 (0-0.3); Eosinophils Percent Auto 0.4 % (0-4.4); Hematocrit 33.1 % (42.0-52.0); Hemoglobin 10.8 g/dL (14.0-18.0); Immature Granulocyte Absolute 0.09 K/mm3 (0.00-0.031); Immature Granulocyte Percent A 0.7 % (0-0.5); Lymphocytes Absolute Auto 2.38 K/mm3 (0.9-3.2); Lymphocytes Percent Auto 17.5 % (18.3-44.2); Mean Corpuscular HGB Conc 32.6 g/dl (32-36); Mean Corpuscular Hemoglobin 26.7 pg (26-34); Mean Corpuscular Volume 81.9 fl (80-100); Mean Platelet Volume 10.9 fl (7.4-10.4); Monocytes Absolute Auto 1.1 K/mm3 (0.1-0.6); Monocytes Percent Auto 7.8 % (2.6-8.5); Neutrophils Percent Auto 73.5 % (45.5-73.1); Platelet Count Result 249 k/mm3 (150-375); Red Blood Count 4.04 M/mm3 (4.6-6.20); White Blood Count 13.6 K/mm3 (4.5-10.0)
[2022-03-22 04:34] LABS: Alanine Aminotransferase 46 U/L (6-50); Albumin Level 3.7 g/dL (3.5-5.1); Alkaline Phosphatase 66 U/L (38-126); Anion Gap 10 mmol/L (8-16); Aspartate Amino Transferase 73 U/L (17-59); Bilirubin,Total 0.7 mg/dL (0.2-1.3); Blood Urea Nitrogen 8 mg/dL (9-20); Calcium 8.3 mg/dL (8.4-10.2); Carbon Dioxide 23 mmol/L (22-30); Chloride 106 mmol/L (98-107); Estimated CRCL calculation 187 ml/min; Estimated Glomerular Filt Rate > 60; Glucose 96 mg/dL (65-110); Phosphorus 3.2 mg/dL (2.5-4.5); Potassium 3.3 mmol/L (3.4-5.0); Sodium 139 mmol/L (137-145)
[2022-03-22] MEDS: SODIUM CHLORIDE 0.9% IV 1,000 ML 75 ML IV CONT (05:02)
[2022-03-22] MEDS: MORPHINE SULFATE (*CRX) 4 MG/ML INJ IV PUSH ×3 (05:03→18:24)
[2022-03-22] MEDS: ENOXAPARIN 40 MG/0.4 ML SYRINGE SUB-Q (08:48)
[2022-03-22] MEDS: PANTOPRAZOLE SODIUM IV 40 MG VIAL IV PUSH (08:48)
[2022-03-22] MEDS: MORPHINE SULFATE (*CRX) 2 MG/ML INJ IV PUSH (08:48)
[2022-03-22] MEDS: cloNIDine HCL 0.1 MG TABLET PO (08:49)
[2022-03-22] MEDS: MOXIFLOXACIN HCL 400 MG TABLET PO (10:21)
[2022-03-22] MEDS: POTASSIUM CHLORIDE 20 MEQ TABLET 40 MEQ PO (10:21)
[2022-03-22] MEDS: HYDROcodone/acetaminophen (*CRX) 5-325 MG TABLET 1 TAB PO (10:23)
--- NOTE | 2022-03-22 10:48 | WPDINTPN ---
Progress Note: A&P Assessment and Plan (1) Acute respiratory failure with hypoxia: Code(s): J96.01 - Acute respiratory failure with hypoxia Status: Acute Assessment and Plan: Patient with acute respiratory failure likely related to pneumonia/aspiration pneumonitis -intubated in the ER on 03/18/2022 after failing BiPAP, he was in respiratory distress in impending respiratory failure 1/4 extubated after a successful weaning trial. Now on room air Incentive spirometry Continue bronchodilators p.r.n. Change antibiotics to p.o. Avelox (2) Aspiration pneumonia: Code(s): J69.0 - Pneumonitis due to inhalation of food and vomit Status: Acute Assessment and Plan: According the records patient did have aspiration of gastric contents into oropharynx during intubation. -continue antibiotics as above (3) Sepsis: Code(s): A41.9 - Sepsis, unspecified organism Status: Acute Assessment and Plan: -sepsis likely secondary to pneumonia -received adequate amount of IV fluids and will discontinue fluids once patient starts eating -continue antibiotics as above -sputum culture is growing yeast which is likely colonization -blood culture 1/2 is growing Staph haemolyticus and bacillus species which suggests contamination -hemodynamically stable at this time (4) Acute kidney injury: Code(s): N17.9 - Acute kidney failure, unspecified Status: Acute Assessment and Plan: Acute kidney injury likely related to infection, decreased p.o. intake, severe sepsis -initial creatinine was 1.5 on admission, patient received adequate amount of IV fluids -creatinine has now normalized -continue maintenance IV fluids -will continue to monitor renal function, electrolytes and urine output (5) Elevated troponin: Code(s): R77.8 - Other specified abnormalities of plasma proteins Status: Acute Assessment and Plan: Elevated troponin likely secondary to sepsis/type 2 infarct -repeat troponins have normalized -EKG did not show any ST-T change (6) Electrolyte abnormality: Code(s): E87.8 - Other disorders of electrolyte and fluid balance, not elsewhere classified Status: Acute Assessment and Plan: Low Potassium is being replaced (7) Drug abuse: Code(s): F19.10 - Other psychoactive substance abuse, uncomplicated Status: Acute Assessment and Plan: Patient claims to be withdrawing from fentanyl and Xanax although no objective signs of drug withdrawal. P.r.n. [place] and morphine ordered for pain Monitor for signs of withdrawal Plan DVT prophylaxis: Lovenox Stress ulcer prophylaxis: Protonix Nutrition: Diet ordered Code Status: Full code Incentive spirometry Up in chair Subjective Date/time seen: 03/22/22 Patient states that he feels 'dope sick'. He states he has pain all over his body which is 10/10 although he was sitting comfortably watching TV when I entered in the room. He states only fentanyl helps his pain and morphine does not work. He states he is anxious from withdrawal from fentanyl.. Review of system was positive for nausea. He had a bowel movement overnight. No diarrhea. All other systems were reviewed and were negative Patient is on room air, afebrile with stable vital signs Normal sinus rhythm on the monitor in 80s adequate blood pressure Review of Systems Review of Systems: All systems reviewed & are unremarkable except as noted in HPI and below (HPI) Exam Narrative: General: Pt is alert awake and in NAD Lungs/Chest: Trachea central Clear BS B/L, clear to auscultation on both sides with no wheezing or crackles Cardiac: RRR. Normal S1 S2. No murmurs Circulation: Pedal pulses are intact and symmetrical. Abdomen: Normal bowel sounds.. Soft. NT. ND. Extremities: No clubbing, cyanosis or edema. Warm : Owens in place Neurologic: Follows commands. Moves all 4 extremities PERRL AO times 3 no tremor Skin:? Warm and
--- NOTE | 2022-03-22 11:00 | PC.NURSE ---
This patient, Frankie Painter, was transferred to [facility] on 03/22/22 at 1255. Personal belongings sent with patient. Report given to accepting RN. Appropriate documentation sent with patient.
--- NOTE | 2022-03-22 11:26 | PC.NURSE ---
pt transferred in to room 326 via bed, 2 [facility] officers at bedside, pt reoriented to new room and environment, reviewed plan of care and med list
[2022-03-22 19:17] LABS: Mycoplasma IgM Antibody Titer 784 U/mL (<770)
[2022-03-22] MEDS: PANTOPRAZOLE 40 MG TABLET PO (20:16)
--- NOTE | 2022-03-22 21:34 | PM.IMPN ---
Progress Note: A&P Assessment and Plan (1) Acute respiratory failure with hypoxia: Code(s): J96.01 - Acute respiratory failure with hypoxia Status: Acute Assessment and Plan: Patient with acute respiratory failure likely related to pneumonia/aspiration pneumonitis -intubated in the ER on 03/18/2022 after failing BiPAP, he was in respiratory distress in impending respiratory failure 1/4 extubated after a successful weaning trial. Now on room air Encourage Incentive spirometry Continue bronchodilators p.r.n. Continue Avelox (2) Aspiration pneumonia: Code(s): J69.0 - Pneumonitis due to inhalation of food and vomit Status: Acute Assessment and Plan: According the records, it was felt patient had aspiration of gastric contents into oropharynx during intubation. -continue antibiotics as above (3) Sepsis: Code(s): A41.9 - Sepsis, unspecified organism Status: Acute Assessment and Plan: -sepsis likely secondary to pneumonia -received adequate amount of IV fluids and will discontinue fluids once patient starts eating -continue antibiotics as above -sputum culture is growing yeast which is likely colonization -blood culture 1/2 is growing Staph haemolyticus and bacillus species which suggests contamination -hemodynamically stable at this time (4) Acute kidney injury: Code(s): N17.9 - Acute kidney failure, unspecified Status: Acute Assessment and Plan: Acute kidney injury likely related to infection, decreased p.o. intake, severe sepsis -initial creatinine was 1.5 on admission, patient received adequate amount of IV fluids -creatinine has now normalized -off IV fluids -will continue to monitor renal function, electrolytes and urine output (5) Elevated troponin: Code(s): R77.8 - Other specified abnormalities of plasma proteins Status: Acute Assessment and Plan: Elevated troponin likely secondary to sepsis/type 2 infarct -repeat troponins have normalized -EKG did not show any ST-T change -Echo does not show any wall motion abnormalities. (6) Electrolyte abnormality: Code(s): E87.8 - Other disorders of electrolyte and fluid balance, not elsewhere classified Status: Acute Assessment and Plan: Low Potassium is being replaced Follow (7) Drug abuse: Code(s): F19.10 - Other psychoactive substance abuse, uncomplicated Status: Acute Assessment and Plan: Patient claims to be withdrawing from fentanyl and Xanax although no objective signs of drug withdrawal but has been in custody for 1 week. P.r.n. [place] and morphine was ordered for pain Will back off on narcotics Plan DVT prophylaxis: Lovenox Nutrition: Diet ordered Code Status: Full code Incentive spirometry Up in chair Subjective Date/time seen: 03/22/22 21:34 Interval history: 31yo male who presented to the ED via EMS from [facility] for evaluation of shortness of breath.? assuming care. Chart reviewed. Patient has been in custody for approximately week prior to admission. He has had upper respiratory infection the past week. Patient was hypoxic admission and developed respiratory failure requiring intubation. Also had fevers. Patient currently out of the ICU now. He denies any chest pain or shortness of breath he is having whole body feeling of pins and needles. Exam Narrative: AF 98.4 136/78 81 20 97%ra Gen - NARD lying almost flat in bed Chest - few rhonchi in the flanks, nml RR CV - RRR S1/S2 Abd - Soft, NT/ND, Positive BS Ext - No pedal edema Psych - Nml mood and affect Skin - Warm and dry Objective Data Vital Signs Vital Signs: Vital Signs - 24 hr 03/21/22 22:00 03/22/22 00:00 03/21/22 22:00 Temperature 98.7 F Pulse Rate 69 71 69 Respiratory Rate 29 H 23 H Blood Pressure 129/94 H 112/69 Pulse Oximetry 97 97 Oxygen Delivery 03/22/22 00:00 03/22/22 00:00 03/22
[2022-03-23] VITALS (10 sets, daily range): BP systolic 124–173; BP diastolic 75–98; PULSE 77–113; RESP 14–20; TEMP 36.6–37.6; O2SAT 93–98
[2022-03-23] MEDS: ONDANSETRON INJ 4 MG/2 ML VIAL IV PUSH ×3 (01:17→20:10)
[2022-03-23] MEDS: hydrALAZINE HCL 20 MG/ML VIAL 10 MG IV PUSH (01:17)
[2022-03-23] MEDS: PROMETHAZINE HCL 25 MG/ML AMPUL IM (06:10)
[2022-03-23 07:42] LABS: Basophils Absolute Auto 0.1 K/mm3 (0.0-0.1); Basophils Percent Auto 0.5 % (0.2-1.2); Eosinophils Absolute Auto 0.1 K/mm3 (0-0.3); Eosinophils Percent Auto 0.5 % (0-4.4); Hematocrit 39.7 % (42.0-52.0); Hemoglobin 13.1 g/dL (14.0-18.0); Immature Granulocyte Absolute 0.16 K/mm3 (0.00-0.031); Lymphocytes Absolute Auto 2.55 K/mm3 (0.9-3.2); Lymphocytes Percent Auto 16.7 % (18.3-44.2); Mean Corpuscular Hemoglobin 27.5 pg (26-34); Mean Corpuscular Volume 83.4 fl (80-100); Mean Platelet Volume 10.6 fl (7.4-10.4); Monocytes Absolute Auto 1.5 K/mm3 (0.1-0.6); Monocytes Percent Auto 9.7 % (2.6-8.5); Neutrophils Percent Auto 71.6 % (45.5-73.1); Platelet Count Result 326 k/mm3 (150-375); Red Blood Count 4.76 M/mm3 (4.6-6.20); Red Cell Distribution Width 14.1 % (11.5-14.5); White Blood Count 15.3 K/mm3 (4.5-10.0)
[2022-03-23 08:10] LABS: Alanine Aminotransferase 126 U/L (6-50); Alkaline Phosphatase 78 U/L (38-126); Anion Gap 11 mmol/L (8-16); Aspartate Amino Transferase 124 U/L (17-59); Bilirubin,Total 0.8 mg/dL (0.2-1.3); Blood Urea Nitrogen 13 mg/dL (9-20); Calcium 8.5 mg/dL (8.4-10.2); Carbon Dioxide 22 mmol/L (22-30); Chloride 106 mmol/L (98-107); Estimated CRCL calculation 165 ml/min; Estimated Glomerular Filt Rate > 60; Glucose 104 mg/dL (65-110); Magnesium 2.3 mg/dL (1.6-2.3); Phosphorus 3.1 mg/dL (2.5-4.5); Potassium 3.6 mmol/L (3.4-5.0); Sodium 139 mmol/L (137-145)
[2022-03-23] MEDS: ENOXAPARIN 40 MG/0.4 ML SYRINGE SUB-Q (09:39)
[2022-03-23] MEDS: PANTOPRAZOLE 40 MG TABLET PO ×2 (09:39→20:10)
[2022-03-23] MEDS: MOXIFLOXACIN HCL 400 MG TABLET PO (09:39)
[2022-03-23] MEDS: IPRATROPIUM BR 0.02% INH SOLN 0.5 MG/2.5 ML VIAL INHALATION (09:40)
[2022-03-23] MEDS: LEVALBUTEROL NEB 1.25 MG/3 ML 0.63 MG INHALATION (09:40)
[2022-03-23] MEDS: cloNIDine HCL 0.1 MG TABLET PO ×2 (09:43→14:57)
--- NOTE | 2022-03-23 15:52 | PM.IMPN ---
Progress Note: A&P Assessment and Plan (1) Nausea & vomiting: Code(s): R11.2 - Nausea with vomiting, unspecified Status: Acute Assessment and Plan: Patient still with nausea and vomiting. Cyclic vomiting? Doubt viral enteritis. Consider acute cholecystitis. He feels related to withdrawal symptoms. Has promethazine and Compazine prn for n/v. Continue to monitor. (2) Elevated LFTs: Code(s): R79.89 - Other specified abnormal findings of blood chemistry Status: Acute Assessment and Plan: AST/ALT higher today. Consider acute cholecystitis. Check Hepatitis panel. Check RUQ US. (3) Sepsis: Code(s): A41.9 - Sepsis, unspecified organism Status: Acute Assessment and Plan: Sepsis likely secondary to pneumonia -received adequate amount of IV fluids and discontinued fluids once patient starts eating -continue antibiotics as above -sputum culture is growing yeast which is likely colonization -blood culture 1/2 is growing Staph haemolyticus and bacillus species which suggests contamination -hemodynamically stable at this time -WBC higher today but no fevers. Follow (4) Acute respiratory failure with hypoxia: Code(s): J96.01 - Acute respiratory failure with hypoxia Status: Acute Assessment and Plan: Patient with acute respiratory failure related to pneumonia/aspiration pneumonitis -intubated in the ER on 03/18/2022 after failing BiPAP, he was in respiratory distress in impending respiratory failure 1/4 extubated after a successful weaning trial. Now on room air Encourage Incentive spirometry Continue bronchodilators and change to p.r.n. Continue Avelox (5) Aspiration pneumonia: Code(s): J69.0 - Pneumonitis due to inhalation of food and vomit Status: Acute Assessment and Plan: According the records, it was felt patient had aspirated gastric contents into oropharynx during intubation. -continue antibiotics as above (6) Elevated troponin: Code(s): R77.8 - Other specified abnormalities of plasma proteins Status: Acute Assessment and Plan: Elevated troponin at 0.145 likely secondary to sepsis/type 2 infarct -repeat troponins have normalized -EKG did not show any ST-T change -Echo does not show any wall motion abnormalities. (7) Electrolyte abnormality: Code(s): E87.8 - Other disorders of electrolyte and fluid balance, not elsewhere classified Status: Acute Assessment and Plan: Potassium normal now. Follow (8) Drug abuse: Code(s): F19.10 - Other psychoactive substance abuse, uncomplicated Status: Acute Assessment and Plan: Patient claims to be withdrawing from fentanyl and Xanax although no objective signs of drug withdrawal and has been in custody for 1 week. UDS positive for Benzos P.r.n. [place] and morphine was ordered for pain but now on tylenol and norco No pain medications for the past 24 hours. (9) Acute kidney injury: Code(s): N17.9 - Acute kidney failure, unspecified Status: Acute Assessment and Plan: Acute kidney injury likely related to infection, decreased p.o. intake, severe sepsis -initial creatinine was 1.5 on admission, patient received adequate amount of IV fluids -creatinine has now normalized -off IV fluids -Resolved -- will continue to monitor renal function, electrolytes and urine output Plan DVT prophylaxis: Lovenox Nutrition: Diet ordered Code Status: Full code Incentive spirometry Up in chair Subjective Date/time seen: 03/23/22 15:52 Interval history: 31yo male who presented to the ED via EMS from [facility] for evaluation of shortness of breath.? Patient states he has not slept since extubation. Haviing nausea and vomiting. No CP or SOB. Had a BM today. No abd pain. Exam Narrative: AF 99.7 136/80 103 20 93%ra Gen - NARD lying almost flat in bed Chest - decreased BS in the bases o/w
[2022-03-23] MEDS: HYDROcodone/acetaminophen (*CRX) 5-325 MG TABLET 1 TAB PO (20:11)
[2022-03-23] MEDS: traZODone HCL 25 MG TABLET PO (20:11)
[2022-03-24] VITALS: BP 148/83; PULSE 105; PULSE 86; RESP 16; TEMP 36.8; O2SAT 94
[2022-03-24 04:00] VITALS: BP 141/87; PULSE 104; PULSE 86; RESP 16; TEMP 36.6; O2SAT 95
[2022-03-24 06:57] LABS: Basophils Absolute Auto 0.1 K/mm3 (0.0-0.1); Basophils Percent Auto 0.5 % (0.2-1.2); Eosinophils Absolute Auto 0.1 K/mm3 (0-0.3); Eosinophils Percent Auto 0.9 % (0-4.4); Hematocrit 37.9 % (42.0-52.0); Hemoglobin 12.8 g/dL (14.0-18.0); Immature Granulocyte Absolute 0.17 K/mm3 (0.00-0.031); Immature Granulocyte Percent A 1.1 % (0-0.5); Lymphocytes Absolute Auto 3.26 K/mm3 (0.9-3.2); Lymphocytes Percent Auto 21.3 % (18.3-44.2); Mean Corpuscular HGB Conc 33.8 g/dl (32-36); Mean Corpuscular Hemoglobin 27.1 pg (26-34); Mean Corpuscular Volume 80.3 fl (80-100); Mean Platelet Volume 10.4 fl (7.4-10.4); Monocytes Absolute Auto 1.7 K/mm3 (0.1-0.6); Monocytes Percent Auto 11.2 % (2.6-8.5); Platelet Count Result 361 k/mm3 (150-375); Red Blood Count 4.72 M/mm3 (4.6-6.20); Red Cell Distribution Width 14.4 % (11.5-14.5); White Blood Count 15.3 K/mm3 (4.5-10.0)
[2022-03-24 07:10] LABS: Alanine Aminotransferase 202 U/L (6-50); Albumin Level 3.9 g/dL (3.5-5.1); Alkaline Phosphatase 79 U/L (38-126); Anion Gap 9 mmol/L (8-16); Aspartate Amino Transferase 140 U/L (17-59); Bilirubin,Total 0.7 mg/dL (0.2-1.3); Blood Urea Nitrogen 16 mg/dL (9-20); Calcium 8.5 mg/dL (8.4-10.2); Carbon Dioxide 24 mmol/L (22-30); Chloride 107 mmol/L (98-107); Estimated CRCL calculation 143 ml/min; Estimated Glomerular Filt Rate > 60; Glucose 112 mg/dL (65-110); Magnesium 2.3 mg/dL (1.6-2.3); Phosphorus 3.9 mg/dL (2.5-4.5); Potassium 3.4 mmol/L (3.4-5.0); Sodium 140 mmol/L (137-145)
[2022-03-24 07:49] LABS: Pneumococcal Antigen Urine Not Detected (Not Detected)
[2022-03-24 07:50] LABS: Atypical Lymphocytes Present; Platelet Estimate Adequate (Adequate); Schistocytes None Seen (NORMAL)
[2022-03-24 08:00] VITALS: PULSE 101
[2022-03-24 08:19] LABS: Hepatitis B Surface Antigen Negative (Negative)
[2022-03-24 08:24] LABS: HAV RESULT Negative (Negative); Hepatitis B Core IgM Result Negative (Negative)
[2022-03-24 08:36] LABS: Hepatitis C Virus Antibody Negative (Negative)
[2022-03-24] MEDS: MOXIFLOXACIN HCL 400 MG TABLET PO (09:06)
[2022-03-24] MEDS: PANTOPRAZOLE 40 MG TABLET PO ×2 (09:06→21:19)
[2022-03-24] MEDS: ENOXAPARIN 40 MG/0.4 ML SYRINGE SUB-Q (09:06)
--- NOTE | 2022-03-24 15:31 | PM.IMPN ---
Progress Note: A&P Assessment and Plan (1) Nausea & vomiting: Code(s): R11.2 - Nausea with vomiting, unspecified Status: Acute Assessment and Plan: Nausea and vomiting better. Cyclic vomiting? Doubt viral enteritis. Consider acute cholecystitis. He feels related to withdrawal symptoms. Has promethazine and Compazine prn for n/v but last used promethazine 24 hours ago. Continue to monitor. (2) Elevated LFTs: Code(s): R79.89 - Other specified abnormal findings of blood chemistry Status: Acute Assessment and Plan: AST/ALT higher again today. HIV and Hepatitis panel negative. Consider acute cholecystitis. Check RUQ US. Continue PPI. (3) Sepsis: Code(s): A41.9 - Sepsis, unspecified organism Status: Acute Assessment and Plan: Sepsis likely secondary to pneumonia -received adequate amount of IV fluids and discontinued fluids once patient starts eating -continue antibiotics as above -sputum culture is growing yeast which is likely colonization -blood culture 1/2 is growing Staph haemolyticus and bacillus species which suggests contamination -hemodynamically stable at this time -WBC about the same but no fevers. Follow (4) Acute respiratory failure with hypoxia: Code(s): J96.01 - Acute respiratory failure with hypoxia Status: Acute Assessment and Plan: Patient with acute respiratory failure related to pneumonia/aspiration pneumonitis -intubated in the ER on 03/18/22 after failing BiPAP and was in respiratory distress with impending respiratory failure 1/4 extubated after a successful weaning trial. Now on room air Encourage Incentive spirometry Continue bronchodilators p.r.n. Continue Avelox (5) Aspiration pneumonia: Code(s): J69.0 - Pneumonitis due to inhalation of food and vomit Status: Acute Assessment and Plan: According the records, it was felt patient had aspirated gastric contents into oropharynx during intubation. -continue antibiotics as above (6) Elevated troponin: Code(s): R77.8 - Other specified abnormalities of plasma proteins Status: Acute Assessment and Plan: Elevated troponin at 0.145 likely secondary to sepsis/type 2 infarct -repeat troponins have normalized -EKG did not show any ST-T change -Echo does not show any wall motion abnormalities. (7) Electrolyte abnormality: Code(s): E87.8 - Other disorders of electrolyte and fluid balance, not elsewhere classified Status: Acute Assessment and Plan: Potassium normal now. Follow (8) Drug abuse: Code(s): F19.10 - Other psychoactive substance abuse, uncomplicated Status: Acute Assessment and Plan: Patient claims to be withdrawing from fentanyl and Xanax although no objective signs of drug withdrawal and has been in custody for 1 week. UDS positive for Benzos P.r.n. Gary and morphine was ordered for pain but now on tylenol and norco Stop Gary (9) Acute kidney injury: Code(s): N17.9 - Acute kidney failure, unspecified Status: Acute Assessment and Plan: Acute kidney injury likely related to infection, decreased p.o. intake, severe sepsis -initial creatinine was 1.5 on admission, patient received adequate amount of IV fluids -creatinine has now normalized -off IV fluids -Resolved Plan DVT prophylaxis: Lovenox Nutrition: Diet ordered Code Status: Full code Incentive spirometry Subjective Date/time seen: 03/24/22 15:31 Interval history: 31yo male who presented to the ED via EMS from [facility] for evaluation of shortness of breath.? Eating better. Less nausea. Abdominal pain improved. No hx of hepatitis. Exam Narrative: AF 98.0 141/87 101 16 95%ra Gen - NARD lying almost flat in bed Chest - CTA bilaterally, nml RR CV - RRR S1/S2 Abd - Soft, NT/ND, Positive BS Ext - No pedal edema Psych - Nml mood and affect Skin - Warm and dry
[2022-03-24 16:00] VITALS: BP 131/74; PULSE 89; RESP 20; TEMP 36.8; O2SAT 94
[2022-03-24 17:02] LABS: HIV 1/2 Ab P24 Ag Result Negative (Negative)
--- NOTE | 2022-03-24 18:17 | PC.NURSE ---
This RN performed Q2hr pulse, cap refill, sensation checks on BLE for pt r/t BLE shackles. Pt skin intact and pale/normal for patient.
[2022-03-24] MEDS: PROCHLORPERAZINE MALEATE 5 MG TABLET 10 MG PO (18:52)
[2022-03-24 20:00] VITALS: BP 140/83; PULSE 96; RESP 18; TEMP 36.6; O2SAT 94
[2022-03-24] MEDS: ONDANSETRON INJ 4 MG/2 ML VIAL IV PUSH (21:19)
[2022-03-24] MEDS: traZODone HCL 25 MG TABLET PO (21:19)
[2022-03-24] MEDS: ACETAMINOPHEN 325 MG TABLET 650 MG PO (21:25)
[2022-03-25] MEDS: traMADol HCL (*CRX) 25 MG TABLET PO ×3 (00:30→12:43)
[2022-03-25 04:00] VITALS: BP 128/73; PULSE 86; RESP 15; TEMP 36.4; O2SAT 97
[2022-03-25 08:00] VITALS: BP 123/79; PULSE 81; RESP 20; TEMP 36.3; O2SAT 95
[2022-03-25 08:28] LABS: Basophils Percent Auto 0.4 % (0.2-1.2); Eosinophils Absolute Auto 0.2 K/mm3 (0-0.3); Eosinophils Percent Auto 1.6 % (0-4.4); Hematocrit 42.7 % (42.0-52.0); Hemoglobin 13.8 g/dL (14.0-18.0); Immature Granulocyte Absolute 0.08 K/mm3 (0.00-0.031); Immature Granulocyte Percent A 0.7 % (0-0.5); Lymphocytes Absolute Auto 2.76 K/mm3 (0.9-3.2); Lymphocytes Percent Auto 24.6 % (18.3-44.2); Mean Corpuscular HGB Conc 32.3 g/dl (32-36); Mean Corpuscular Hemoglobin 27.4 pg (26-34); Mean Corpuscular Volume 84.7 fl (80-100); Monocytes Absolute Auto 1.5 K/mm3 (0.1-0.6); Monocytes Percent Auto 12.9 % (2.6-8.5); Neutrophils Absolute Auto 6.7 K/mm3 (1.3-6.7); Neutrophils Percent Auto 59.8 % (45.5-73.1); Platelet Count Result 368 k/mm3 (150-375); Red Blood Count 5.04 M/mm3 (4.6-6.20); Red Cell Distribution Width 14.9 % (11.5-14.5); White Blood Count 11.2 K/mm3 (4.5-10.0)
[2022-03-25 08:36] LABS: Alanine Aminotransferase 229 U/L (6-50); Albumin Level 4.1 g/dL (3.5-5.1); Alkaline Phosphatase 83 U/L (38-126); Anion Gap 12 mmol/L (8-16); Aspartate Amino Transferase 95 U/L (17-59); Bilirubin,Total 0.4 mg/dL (0.2-1.3); Blood Urea Nitrogen 14 mg/dL (9-20); Calcium 8.7 mg/dL (8.4-10.2); Carbon Dioxide 23 mmol/L (22-30); Chloride 108 mmol/L (98-107); Estimated CRCL calculation 143 ml/min; Estimated Glomerular Filt Rate > 60; Glucose 116 mg/dL (65-110); Potassium 3.3 mmol/L (3.4-5.0); Sodium 143 mmol/L (137-145)
[2022-03-25] MEDS: PANTOPRAZOLE 40 MG TABLET PO (08:47)
[2022-03-25] MEDS: MECLIZINE HCL 6.25 MG TABLET PO ×2 (08:47→12:44)
[2022-03-25] MEDS: MOXIFLOXACIN HCL 400 MG TABLET PO (08:47)
[2022-03-25] MEDS: ENOXAPARIN 40 MG/0.4 ML SYRINGE SUB-Q (08:47)
[2022-03-25 09:31] LABS: Atypical Lymphocytes Present; Platelet Estimate Adequate (Adequate); Schistocytes None Seen (NORMAL)
[2022-03-25 12:00] VITALS: BP 123/73; PULSE 96; RESP 18; TEMP 36.3; O2SAT 95
--- NOTE | 2022-03-25 13:18 | PM.DS ---
DS: Admitting Diagnosis Discharge Date 03/25/22 Admitting Diagnosis Shortness of breath DS: Discharge Diagnosis Discharge Diagnosis (1) Nausea & vomiting: Code(s): R11.2 - Nausea with vomiting, unspecified Status: Acute (2) Elevated LFTs: Code(s): R79.89 - Other specified abnormal findings of blood chemistry Status: Acute (3) Sepsis: Code(s): A41.9 - Sepsis, unspecified organism Status: Acute (4) Acute respiratory failure with hypoxia: Code(s): J96.01 - Acute respiratory failure with hypoxia Status: Acute (5) Aspiration pneumonia: Code(s): J69.0 - Pneumonitis due to inhalation of food and vomit Status: Acute (6) Elevated troponin: Code(s): R77.8 - Other specified abnormalities of plasma proteins Status: Acute (7) Electrolyte abnormality: Code(s): E87.8 - Other disorders of electrolyte and fluid balance, not elsewhere classified Status: Acute (8) Drug abuse: Code(s): F19.10 - Other psychoactive substance abuse, uncomplicated Status: Acute (9) Acute kidney injury: Code(s): N17.9 - Acute kidney failure, unspecified Status: Acute DS: Summary Hospital Course Reason for hospitalization: 31yo male who presented to the ED via EMS from [facility] for evaluation of shortness of breath.?Please see H&P for details Hospital Course: Patient had symptoms of an upper respiratory infection for the past week with increasing shortness of breath. Prior to arrival he was given a nebulizer treatment and EMS was summoned due to an SpO2 of 80% on room air. He arrived to the ED alert and oriented x4 with an SpO2 of 83% on CPAP. He was in respiratory extremis and he was transitioned to BiPAP to prepare for intubation. During intubation he was noted to have copious amounts of gastric contents in the oropharynx and it is assumed that he likely aspirated prior to intubation. He was afebrile on arrival but temperature did spike to 103.2? once in ICU. Blood pressures was stable and he was tachycardic. Labs were significant for leukocytosis with left shift, sodium 146, potassium 3.1, BUN 36, creatinine 1.50, lactic acid 2.1, proBNP 342, troponin 0.145. Drug screen was positive for benzodiazepines. He was negative for influenza and COVID. CT of the chest was limited due to motion though he appears to have pneumonia involving all lobes with mucous plugging in the right middle and lower lobes. Brain CT showed a normal brain with chronic sinusitis and dental disease. Sepsis likely due to aspiration pneumonia. One blood culture grew staphylococcus haemolyticus and bacillus species but this was felt to be a contaminated specimen. Patient had clinical improvement. He was able to be extubated and easily weaned to room air. Was started on broad-spectrum IV antibiotics and these were narrowed. His troponin was elevated likely secondary to the sepsis causing a type 2 infarct. Repeat troponin normalized. EKG did not show any ST T wave changes. Echocardiogram showed normal EF with diastolic dysfunction and no focal wall motion abnormalities. His white count trended downward. His LFTs were mildly elevated. Upper quadrant ultrasound showed possibly cirrhosis (patient made aware and instructed to have his doctor follow up on this finding). Hepatitis panel and HIV were negative. LFTs were trending downward at time of discharge. Patient had nausea and vomiting but this symptom improved. He was educated about the benefits of abstaining from alcohol and drug use. He overall did well was able to discharge home 03/25/2022. Status at Discharge Cognitive/behavioral status at discharge: stable Time Spent with Patient Time attestation: Total time spent providing and/or coordinating discharge services:36 minutes Exam Narrative: AF 97.4 123/73 96 18 95%ra Gen - NARD lying almost flat in bed Chest - CTA bilaterally, nml RR CV - RRR S1/S
== END 2022-03-25 15:00 | disposition home or self-care (01) | DRG 871 ==
LOC: ANHED 09:57 → ANHICU 13:59 → ANH3MEDSUR 03-22 10:59
PROVIDERS: Internal Medicine; Physician Assistant; Admitting Provider Chiropractor; Emergency Provider General Practice; Visit Provider Internal Medicine
DX: A41.1 Sepsis due to other specified staphylococcus (principal); J69.0 Pneumonitis due to inhalation of food and vomit; I21.A1 Myocardial infarction type 2; J96.01 Acute respiratory failure with hypoxia; N17.9 Acute kidney failure, unspecified; R65.20 Severe sepsis without septic shock; J32.9 Chronic sinusitis, unspecified; E86.0 Dehydration; E87.6 Hypokalemia; F11.10 Opioid abuse, uncomplicated; K74.60 Unspecified cirrhosis of liver; R11.2 Nausea with vomiting, unspecified; R79.89 Other specified abnormal findings of blood chemistry; Z20.822 Contact with and (suspected) exposure to COVID-19; Z88.0 Allergy status to penicillin
CPT/HCPCS: 31500; 36415; 36600; 51702; 70450; 71045; 71275; 76705; 80048; 80053; 80074; 80202; 80307; 82375; 82550; 82805; 82948; 83050; 83605; 83735; 83880; 84100; 84478; 84484; 85025; 85610; 85730; 86703; 86738; 87040; 87070; 87081; 87106; 87147; 87181; 87186; 87205; 87449; 87636; 87899; 93005; 94003; 94640; 94762; 96365; 96367; 96375; 99285; A9270; C8929; C9113; G0432; J0131; J0360; J0456; J0692; J0696; J1650; J1940; J2250; J2270; J2405; J2550; J2704; J3010; J3370; J3480; J7030; J7040; J7050; Q9957; Q9967

== ENCOUNTER 2022-07-24 13:53 | Emergency (ER) | payer OTHER, SELFPAY ==
--- NOTE | ~2022-07-24 | CT_ITS ---
EXAMINATION: CT brain wo con DATE: 07/24/2022 17:05 INDICATION: head injury . TECHNIQUE: Computed tomography (CT) of the head was performed without intravenous contrast. The mA wa s adjusted according to patient size. Iterative reconstruction technique was employed. The dose-lengt h product was 983.67 mGy-cm. COMPARISON: 03/18/2022. FINDINGS: No acute intracranial hemorrhage or extra-axial fluid collection. No hydrocephalus, mass, or herniation. No acute ischemic infarct. Unremarkable dural venous sinus attenuation. No acute osseous abnormality. Mucosal thickening with surrounding osseous sclerosis in all paranasal sinuses. Aerated secretions in the bilateral maxillary sinuses, the remaining aerated spaces are clear. IMPRESSION: No acute intracranial process. Acute on chronic sinusitis. Reviewed, dictated and finalized at location K.
--- NOTE | ~2022-07-24 | CT_ITS ---
EXAMINATION: CT facial & cervical spine wo DATE: 07/24/2022 17:05 INDICATION: head injury TECHNIQUE: Computed tomography (CT) of the maxillofacial region and cervical spine was performed with intravenous contrast. Automated exposure control and iterative reconstruction technique were employe d. The dose-length product was 448.63 mGy-cm. COMPARISON: None FINDINGS: CERVICAL: Vertebral Body Alignment: Intact. Craniocervical and atlantoaxial alignment: No significant degenerative change. Alignment intact. Osseous structures/fracture: No evidence of a lytic or blastic process in the visualized spine. No e vidence of acute fracture. Cervical soft tissues: The paraspinal soft tissues planes are maintained. Degenerative changes: No significant degenerative changes. FACE: Soft Tissues: Soft tissue swelling over the left cheek. Facial bones: No acute fracture. No lytic or blastic process. Eyes: The globes are intact. The soft tissue planes of the orbits are maintained. Paranasal Sinuses: Acute on chronic sinusitis. Foreign Bodies: No radiopaque foreign bodies. Other Findings: None. IMPRESSION: No acute fracture or traumatic malalignment in the cervical spine. No acute facial bone fracture. Reviewed, dictated and finalized at location K. IMPRESSION: No acute fracture or traumatic malalignment in the cervical spine. No acute fac ial bone fracture.
[2022-07-24 13:47] VITALS: BP 123/76; PULSE 70; RESP 16; TEMP 36.8; O2SAT 100
[2022-07-24 14:11] VITALS: PULSE 86
[2022-07-24] MEDS: SODIUM CHLORIDE 0.9% IV 1,000 ML 999 ML IV CONT ×2 (14:15→16:04)
[2022-07-24] MEDS: ONDANSETRON INJ 4 MG/2 ML VIAL IV PUSH ×2 (14:15→16:04)
--- NOTE | 2022-07-24 14:24 | ED.GENADULT ---
HPI - General Adult General Chief complaint: Unspecified Stated complaint: withdrawing from drugs History of Present Illness HPI narrative: 32-year-old male history of polysubstance abuse presents to the emergency room via EMS from a local intermediate for evaluation of nausea vomiting, abdominal discomfort and withdrawal symptoms from recent use of fentanyl and diazepam. Patient is alert and oriented x3. States his last use of opiates and benzodiazepines was 48 hours ago. Related Data Allergies Allergy/AdvReac Type Severity Reaction Status Date / Time Penicillins Allergy Unknown Verified 03/18/22 13:38 Review of Systems Review of Systems: CONSTITUTIONAL: Denies fever, chills, or sweats. EYES: Denies visual changes, redness, or discharge. ENT: Denies rhinorrhea, congestion, sore throat, or otalgia. CARDIOVASCULAR: Denies chest pain, palpitations, or edema. RESPIRATORY: Denies cough or dyspnea. GASTROINTESTINAL: Reports nausea GENITOURINARY: Denies dysuria or hematuria. SKIN: Denies rash or itching. MUSCULOSKELETAL: Denies back pain, joint pain, or myalgia. NEUROLOGIC: Denies headache, numbness, dizziness, or weakness. PSYCHIATRIC: Denies anxiety or depression. PMFSH Past Medical History Medical History Medical history unknown Surgical History Surgical History Surgical history unknown Family History Family History Other Family history unknown Social History Social History Social History: Social history unknown. Reported fentanyl use though cannot confirm. Spiritual care concerns: No Exam Narrative: GENERAL: Acutely ill-appearing, well-nourished, no physical limitations HEAD: Normocephalic, ecchymosis and soft tissue swelling to the left brow and left maxilla EYES: Conjunctivae normal, PERRLA and EOMI. CHEST: Clear to auscultation. No respiratory distress. No wheezes rales or rhonchi. HEART: Regular rate and rhythm. No murmur heard. Normal peripheral pulses. ABDOMEN: Soft, nontender, nondistended, normal active bowel sounds. EXTREMITIES: Normal range of motion. No edema. No clubbing or cyanosis SKIN: Warm, dry, no rash. No noted wounds NEURO: No focal deficits. Alert and oriented x3. MAEW. CN's II-XI intact bilaterally, PSYCH: Cooperative. Normal mood and affect. Course Vital Signs Vital signs: Vital Signs Temperature 36.8 C 07/24/22 13:47 Pulse Rate 70 07/24/22 13:47 Respiratory Rate 16 07/24/22 13:47 Blood Pressure 123/76 07/24/22 13:47 Pulse Oximetry 100 07/24/22 13:47 Temperature 36.8 C 07/24/22 13:47 Pulse Rate 80 07/24/22 16:03 Respiratory Rate 24 H 07/24/22 16:03 Blood Pressure 143/86 H 07/24/22 16:03 Pulse Oximetry 95 07/24/22 16:03 Medical Decision Making Vital Signs Vital Signs: Vital Signs Temperature 36.8 C 07/24/22 13:47 Pulse Rate 70 07/24/22 13:47 Respiratory Rate 16 07/24/22 13:47 Blood Pressure 123/76 07/24/22 13:47 Pulse Oximetry 100 07/24/22 13:47 Temperature 36.8 C 07/24/22 13:47 Pulse Rate 80 07/24/22 16:03 Respiratory Rate 24 H 07/24/22 16:03 Blood Pressure 143/86 H 07/24/22 16:03 Pulse Oximetry 95 07/24/22 16:03 Lab Data 07/24/22 14:42 07/24/22 14:42 Labs: Lab Results 07/24/22 07/24/22 Range/Units 14:42 15:18 WBC 17.1 H (4.5-10.0) K/mm3 RBC 4.98 (4.6-6.20) M/mm3 Hgb 13.4 L (14.0-18.0) g/dL Hct 41.4 L (42.0-52.0) % MCV 83.1 (80-100) fl MCH 26.9 (26-34) pg MCHC 32.4 (32-36) g/dl RDW 14.8 H (11.5-14.5) % Plt Count 404 H (150-375) k/mm3 MPV 10.6 H (7.4-10.4) fl Immature Gran % (Auto) 0.4 (0-0.5) % Neut % (Auto) 91.5 H (45.5-73.1) % Lymph % (Auto) 6.1 L (18.3-44.2) % Mo
[2022-07-24 14:47] LABS: Basophils Absolute Auto 0.1 K/mm3 (0.0-0.1); Basophils Percent Auto 0.4 % (0.2-1.2); Eosinophils Percent Auto 0.1 % (0-4.4); Hematocrit 41.4 % (42.0-52.0); Hemoglobin 13.4 g/dL (14.0-18.0); Immature Granulocyte Absolute 0.07 K/mm3 (0.00-0.031); Immature Granulocyte Percent A 0.4 % (0-0.5); Lymphocytes Absolute Auto 1.05 K/mm3 (0.9-3.2); Lymphocytes Percent Auto 6.1 % (18.3-44.2); Mean Corpuscular HGB Conc 32.4 g/dl (32-36); Mean Corpuscular Hemoglobin 26.9 pg (26-34); Mean Corpuscular Volume 83.1 fl (80-100); Mean Platelet Volume 10.6 fl (7.4-10.4); Monocytes Absolute Auto 0.3 K/mm3 (0.1-0.6); Monocytes Percent Auto 1.5 % (2.6-8.5); Neutrophils Absolute Auto 15.6 K/mm3 (1.3-6.7); Neutrophils Percent Auto 91.5 % (45.5-73.1); Platelet Count Result 404 k/mm3 (150-375); Red Blood Count 4.98 M/mm3 (4.6-6.20); Red Cell Distribution Width 14.8 % (11.5-14.5); White Blood Count 17.1 K/mm3 (4.5-10.0)
[2022-07-24 15:09] LABS: Alanine Aminotransferase 29 U/L (6-50); Albumin Level 4.9 g/dL (3.5-5.1); Alkaline Phosphatase 126 U/L (38-126); Anion Gap 20 mmol/L (8-16); Aspartate Amino Transferase 43 U/L (17-59); Bilirubin,Total 1.3 mg/dL (0.2-1.3); Blood Urea Nitrogen 9 mg/dL (9-20); Calcium 9.2 mg/dL (8.4-10.2); Carbon Dioxide 17 mmol/L (22-30); Chloride 101 mmol/L (98-107); Estimated CRCL calculation 144 ml/min; Estimated Glomerular Filt Rate > 60; Glucose 72 mg/dL (65-110); Potassium 3.5 mmol/L (3.4-5.0); Sodium 138 mmol/L (137-145)
[2022-07-24 15:27] LABS: Appearance Urine Clear (Clear); Bilirubin Urine Negative (Negative); Blood Urine Negative (Negative); Color Urine Yellow (Yellow); Glucose Urine UA Negative (Negative); Ketones Urine 4+ mg/dL (Negative); Leukocyte Esterase Ur Negative LEU/UL (Negative); Nitrate Urine Negative (Negative); Protein Urine Negative (Negative); Specific Grav Ur 1.017 (1.001-1.035)
[2022-07-24 15:38] VITALS: PULSE 86; RESP 21
[2022-07-24 15:41] LABS: Add Urine Microscopic? NO
[2022-07-24 16:03] VITALS: BP 143/86; PULSE 80; RESP 24; O2SAT 95
[2022-07-24 16:21] LABS: Barbiturate Screen Urine Negative (Negative); Benzodiazepines Screen Urine Negative (Negative)
[2022-07-24 16:23] LABS: Cannabinoid Screen Urine Negative (Negative); Cocaine Screen Urine Negative (Negative); Methadone Screen Urine Negative (Negative); Opiate Screen Urine Negative (Negative); Phencyclidine Screen Urine Negative (Negative)
[2022-07-24 16:43] LABS: Amphetamine Screen Urine Positive (Negative)
== END 2022-07-24 17:47 | disposition home or self-care (01) ==
PROVIDERS: Emergency Provider Nurse Practitioner Family
DX: R11.2 Nausea with vomiting, unspecified (principal); F11.13 Opioid abuse with withdrawal; F13.139 Sedative, hypnotic or anxiolytic abuse with withdrawal, unspecified
CPT/HCPCS: 36415; 70450; 70486; 72125; 80053; 80307; 81003; 85025; 96361; 96374; 96376; 99284; J2405; J7030